=== PATIENT | male | born 1995 | race Caucasian/White ===

== ENCOUNTER 2024-01-31 13:21 | Observation (INO) ==
--- OUTSIDE RECORDS SUMMARY | 2024-01-31 13:26 | External Medical Summary | Summary of Care ---
Author Name Unknown Organization [facility] Address [address] [place] [address] Phone [phone] Care Team Providers Care Branch Mechanic Name Role Phone Carlota Jeffers DO Primary Care Provider +1- [phone] Reason for Visit * Reason Comments eRx-Medication Refill Encounter Details Date Type Department Care Team (Late st Contact Info) Description 01/21/2024 Refill Family [facility] [address] [place] [address] Carlota Jeffers DO [address] [place] [address] LINDA (generalized anxiety disorder) Allergies Active Allergy Reactions Criticality Noted Date Comments Bee Venom 10/28/2021 documented as of this encounter (statuses as of 01/27/2024) Medications Medication Sig Dispensed Refills Start Date End Date Status Omeprazole 20 MG Oral Capsule Delayed Release (PriLOSEC)Indications :Gastroesophageal reflux disease without esophagitis take 1 capsule by mouth once daily 30 Capsule 0 09/28/2023 Active Citalopram Hydrobromide 20 MG Oral Tablet (CeleXA)Indications:G AD (generalized anxiety disorder) take 1 tablet by mouth every morning 30 Tablet 0 11/20/2023 Active documented as of this encounter (statuses as of 01/27/2024) Active Problems Problem Noted Date Diagnosed Date Gastroesophageal reflux disease without esophagi tis 10/28/2021 LINDA (generalized anxiety disorder) 10/28/2021 Migraine without aura 02/01/2015 documented as of this encounter (statuses as of 01/27/2024) Resolved Problems Problem Noted Date Diagnosed Date Resolved Date Chronic daily headache 02/01/201510/28 Cervicalgia 02/01/2015 10/28/2021 Concussion 07/09/2011 10/28/2021 documented as of this encounter (statuses as of 01/27/2024) Immunizations Name Administration Dates Next Due COVID-19 mRNA, LNP-s, No Pre serve, 2-Dose Series (Moderna) 10/15/2021 DTaP Dipth/Tet/Acell Pertussis (Infanrix), Peds 12/30/2000,12/12/1996,1995,06/10,1995 Haemophilius B (HIB), unspecified 1996,1995,1995,04/01 Hepatitis B, 0-19 yrs 1995,1995,1995 MMR - Measles/Mumps/Rubella Vaccine 12/30/2000,0 05/20/1996 Meningococcal Conjugate Vacc ine (Menactra/Menveo) 09/23/2011,01/19/2008 OPV - Polio Virus Vaccine (Oral) 001,12/12/1996,1995,04/01 Seasonal Influenza, PF, 6 M & above, IM , (FluLaval or Fluzone) 08/03/2019 TDAP (age 10 and older)(Boostrix) 01/19/2008 Varicella Vaccine (Chicken Pox) 01/19/2008,12/12 documented as of this encounter Social History Tobacco Use Types Packs/Day Years Used Date Smoking Tobacco: Never Smokeless Tobacco: Never Alcohol Use Standard Drinks/Week Comments Not Currently 0 (1 standard drink = 0.6 oz pur e alcohol) Sex and Gender Information Value Date Recorded Sex Assigned at Not on file Gender Identity Not on file Sexual Orientation Not on file documented as of this encounter Miscellaneous Notes * Telephone Encounter - Xiomy Gerard OSA - 01/27/2024 10:31 AM EDT No answer, vm full. * Telephone Encounter - Xiomy Gerard OSA - 01/25/2024 12:23 PM EDT Called pt. No answer. Voicemail is full. * Telephone Encounter - Carlota Jeffers DO - 01/25/2024 8:55 AM EDT Please call patient and schedule appointment before any additional medications will be refilled * Telephone Encounter - Carlota Jeffers DO - 01/25/2024 8:55 AM EDTRefused Prescriptions: Disp Refills Citalopram Hydrobromide 20 MG Oral Tablet *30 Tab*0 Sig: take 1 tablet by mouth every morning Refused By: CARLOTA JEFFERS Reason for Refusal: Appt. Required, please call patient * Telephone Encounter - Wilmar Snell [facility] - 01/22/2024 4:21 PM EDT Pending Prescriptions: Disp Refills Citalopram Hydrobromide 20 MG Oral Tablet *30 Tab*0 Sig: take 1 tablet by mouth every morning * Telephone Encounter - Wilmar Snell [facility] - 01/22/2024 4:20 PM EDT Unable to authorize medication refills for pended medication(s) at this time. Part of the protocol criteria used for refill authorization was not satisfied. Patient needs OV and there have been multiple attempts to contact. Please approve if appropriate. Did you pend patient's preferred pharmacy and medication before forwarding?yes Pharmacy: [facility] #[id number] [facility] Pending Prescriptions: Disp Refills Citalopram Hydrobromide 20 MG Oral Tablet*30 Tab*0 Sig: take 1 tablet by mouth every morning Last Visit: 10/28/2021 (in office), Visit date not found (telemedicine) Next Visit: Visit date not found If no future appointments scheduled, and last appointment is greater than a year ago, please schedule patient for a follow-up appointment Last date the medication was ordered: 11/20/23 Is this request for a controlled substance?No Urine Drug Screen:No results found for this or any previous visit. Patient Phone Numbers Labs: No results found for: "CREAT", "POTASSIUM", "TSH", "LDLCALC", "LDLDIRECT", "LDLCHOL", "ALT", "HGBA1C" documented in this encounter Plan of Treatment Health Maintenance Due Date Last Done Comments Depression Screening 2007 HIV Screening 2010 Hepatitis C Screening 2013 DTaP,Tdap,and Td Vaccines (7 - Td or Tdap) 01/18/2018 01/19/2008, 12/30/2000, 12/12/1996, Additional history exists COVID-19 Vaccine (2022- season) 2023 10/15/2021 Influenza Vaccine (FLU shot) (#1) 2023 08/03/2019 Hepatitis B Completed 1995, 03/10, 1995 MENINGOCOCCAL (MENACTRA/MENVEO) Completed 09/23/2011, 01/19/2008 GARDASIL-HPV IMMUNIZATION SERIES Aged Out No longer eligible based on patient's age to complete this topic Pneumococcal Vaccine: Pediatrics (0 to 5 Years) and At-Risk Patients (6 to 64 Years) Aged Out No longer eligible based on patient's age to complete this topic documented as of this encounter Medical Devices Not on filedocumented as of this encounter Visit Diagnoses Diagnosis LINDA (generalized anxiety disorder) Generalized anxiety disorder documented in this encounter Care Teams Branch Mechanic Relationship Specialty Start Date End Date Carlota Jeffers DO [address] [facility] [place]) [place] [address] PCP - General Family Medicine 10/28/21 documented as of this encounter
--- OUTSIDE RECORDS SUMMARY | 2024-01-31 13:26 | External Medical Summary | Summary of Care ---
Author Name Unknown Organization [facility] Address [address] [place] [address] Phone [phone] Care Team Providers Care Public Health Veterinarian Name Role Phone Carlota Jeffers DO Primary Care Provider +1- [phone] Reason for Visit * Reason Comments eRx-Medication Refill Encounter Details Date Type Department Care Team (Late st Contact Info) Description 01/21/2024 Refill Family [facility] [address] [place] [address] Carlota Jeffers DO [address] [place] [address] LINDA (generalized anxiety disorder) Allergies Active Allergy Reactions Criticality Noted Date Comments Bee Venom 10/28/2021 documented as of this encounter (statuses as of 01/25/2024) Medications Medication Sig Dispensed Refills Start Date [...] as of this encounter (statuses as of 01/25/2024) Active Problems Problem Noted Date Diagnosed Date Gastroesophageal reflux disease without esophagi tis 10/28/2021 LINDA (generalized anxiety disorder) 10/28/2021 Migraine without aura 02/01/2015 documented as of this encounter (statuses as of 01/25/2024) Resolved Problems Problem Noted Date Diagnosed Date Resolved Date Chronic daily headache 02/01/201510/28 Cervicalgia 02/01/2015 10/28/2021 Concussion 07/09/2011 10/28/2021 documented as of this encounter (statuses as of 01/25/2024) Immunizations Name Administration Dates Next Due COVID-19 [...] encounter Miscellaneous Notes * Telephone Encounter - Carlota Jeffers DO [...] call patient * Telephone Encounter - Wilmar Snell, [facility] - 01/22/2024 4:21 PM EDT Pending Prescriptions: Disp Refills Citalopram Hydrobromide 20 MG Oral Tablet *30 Tab*0 Sig: take 1 tablet by mouth every morning * Telephone Encounter - Wilmar Snell [facility] - 01/22/2024 4:20 PM EDT Unable to authorize medication refills for pended medication(s) at this time. Part of the protocol criteria used for refill authorization was not satisfied. Patient needs OV and there have been multiple attempts to contact. Please approve if appropriate. Did you pend patient's preferred pharmacy and medication before forwarding?yes Pharmacy: [facility] #[id number] [facility] Pending Prescriptions: Disp Refills Citalopram Hydrobromide [...] 12/30/2000, 12/12/1996, Additional history exists COVID-19 Vaccine (2 2022- season) 2023 10/15/2021 Influenza Vaccine (FLU shot) [...] disorder documented in this encounter Care Teams Public Health Veterinarian Relationship Specialty Start Date End Date Carlota Jeffers DO [address] [facility] [place] [address] PCP - General Family Medicine 10/28/21 documented as of this encounter
--- OUTSIDE RECORDS SUMMARY | 2024-01-31 13:26 | External Medical Summary | Summary of Care ---
Author Name Unknown Organization [facility] Address [address] [place] [address] Phone [phone] Care Team Providers Care Finance Analyst Name Role Phone Carlota Jeffers DO Primary Care Provider +1- [phone] Reason for Visit * Reason Comments eRx-Medication Refill Encounter Details Date Type Department Care Team (Late st Contact Info) Description 01/21/2024 Refill Family [facility] [address] [place] [address] Carlota Jeffers DO [address] [place] [address] LINDA (generalized anxiety disorder) Allergies Active Allergy [...] patient * Telephone Encounter - Wilmar Snell, [facility] - 01/22/2024 4:21 PM EDT Pending Prescriptions: Disp Refills Citalopram Hydrobromide 20 MG Oral Tablet *30 Tab*0 Sig: take 1 tablet by mouth every morning * Telephone Encounter - Wilmar Snell [facility] - 01/22/2024 4:20 PM EDT Unable to authorize medication refills for pended medication(s) at this time. Part of the protocol criteria used for refill authorization was not satisfied. Patient needs OV and there have been multiple attempts to contact. Please approve if appropriate. Did you pend patient's preferred pharmacy and medication before forwarding?yes Pharmacy: [facility] #[id number] [facility] Pending Prescriptions: Disp Refills Citalopram Hydrobromide 20 [...] disorder documented in this encounter Care Teams Finance Analyst Relationship Specialty Start Date End Date Carlota Jeffers DO [address] [facility] [place] [address] PCP - General Family Medicine 10/28/21 documented as of this encounter
--- OUTSIDE RECORDS SUMMARY | 2024-01-31 13:26 | External Medical Summary | Summary of Care ---
Author Name Unknown Organization [facility] Address [address] [place] [address] Phone [phone] Care Team Providers Care Slunk Skinner Name Role Phone Carlota Jeffers DO Primary Care Provider +1- [phone] Reason for Visit * Reason Comments eRx-Medication Refill Encounter Details Date Type Department Care Team (Late st Contact Info) Description 01/21/2024 Refill Family [facility] [address] [place] [address] Carlota Jeffers DO [address] [place] [address] LINDA (generalized anxiety disorder) Allergies Active Allergy [...] patient * Telephone Encounter - Wilmar Snell [facility] - 01/22/2024 4:21 PM EDT Pending Prescriptions: Disp Refills Citalopram Hydrobromide 20 MG Oral Tablet *30 Tab*0 Sig: take 1 tablet by mouth every morning * Telephone Encounter - Wilmar Snell [facility] - 01/22/2024 4:20 PM EDT Unable to authorize medication refills for pended medication(s) at this time. Part of the protocol criteria used for refill authorization was not satisfied. Patient needs OV and there have been multiple attempts to contact. Please approve if appropriate. Did you pend patient's preferred pharmacy and medication before forwarding?yes Pharmacy: [facility] #[id number] [facility] Pending Prescriptions: Disp Refills Citalopram Hydrobromide [...] 12/30/2000, 12/12/1996, Additional history exists COVID-19 Vaccine ( season) 2023 10/15/2021 Influenza Vaccine (FLU shot) [...] disorder documented in this encounter Care Teams Slunk Skinner Relationship Specialty Start Date End Date Carlota Jeffers DO [address] [facility] [place] [address] PCP - General Family Medicine 10/28/21 documented as of this encounter
--- OUTSIDE RECORDS SUMMARY | 2024-01-31 13:26 | External Medical Summary | Summary of Care ---
Author Name Unknown Organization [facility] Address [address] [place] [address] Phone [phone] Care Team Providers Care Enterprise Account Executive Name Role Phone Carlota Jeffers DO Primary Care Provider +1- [phone] Reason for Visit * Reason Comments eRx-Medication Refill Encounter Details Date Type Department Care Team (Late st Contact Info) Description 01/21/2024 Refill Family [facility] [address] [place] [address] Carlota Jeffers DO [address] [place] [address] Gastroesophageal reflux disease without esophagitis Allergies Active Allergy Reactions Criticality Noted Date [...] 01/25/2024 8:55 AM EDTRefused Prescriptions: Disp Refills Omeprazole 20 MG Oral Capsule Delayed Rele*30 Cap*0 Sig: take 1 capsule by mouth once daily Refused By: CARLOTA JEFFERS Reason for Refusal: Appt. Required, please call patient * Telephone Encounter - Wilmar Snell, [facility] - 01/22/2024 4:25 PM EDT Pending Prescriptions: Disp Refills Omeprazole 20 MG Oral Capsule Delayed Rele*30 Cap*0 Sig: take 1 capsule by mouth once daily * Telephone Encounter - Wilmar Snell [facility] - 01/22/2024 4:24 PM EDT Unable to authorize medication refills for pended medication(s) at this time. Part of the protocol criteria used for refill authorization was not satisfied. Patient needs OV and there have been multiple attempts to contact. Please approve if appropriate. Did you pend patient's preferred pharmacy and medication before forwarding?yes Pharmacy: [facility] #[id number] [address] [facility] Pending Prescriptions: Disp Refills Omeprazole 20 MG Oral Capsule Delayed Rel*30 Cap*0 Sig: take 1 capsule by mouth once daily Last Visit: 10/28/2021 (in office), Visit date not found (telemedicine) Next Visit: Visit date not found If no future appointments scheduled, and last appointment is greater than a year ago, please schedule patient for a follow-up appointment Last date the medication was ordered: 09/28/2023 Is this request for a controlled substance?No [...] as of this encounter Visit Diagnoses Diagnosis Gastroesophageal reflux disease without esophagitis Esophageal reflux documented in this encounter Care Teams Enterprise Account Executive Relationship Specialty Start Date End Date Carlota Jeffers DO [address] [facility] [place] [address] PCP - General Family Medicine 10/28/21 documented as of this encounter
--- OUTSIDE RECORDS SUMMARY | 2024-01-31 13:27 | External Medical Summary | Summary of Care ---
Author Name Unknown Organization [facility] Address [address] [place] [address] Phone [phone] Care Team Providers Care Supervisor Reclamation Name Role Phone Carlota Jeffers DO Primary Care Provider +1- [phone] Reason for Visit * Reason Comments eRx-Medication Refill Encounter Details Date Type Department Care Team ([facility] st Contact Info) Description 12/28/2023 Refill Family Practice [facility] [address] [place] [address] Nicho Coombs MD [address] [place] [id number] LINDA (generalized anxiety disorder) Allergies Active Allergy Reactions Criticality Noted Date Comments Bee Venom 10/28/2021 documented as of this encounter (statuses as of 12/31/2023) Medications Medication Sig Dispensed Refills Start Date [...] as of this encounter (statuses as of 12/31/2023) Active Problems Problem Noted Date Diagnosed Date Gastroesophageal reflux disease without esophagi tis 10/28/2021 LINDA (generalized anxiety disorder) 10/28/2021 Migraine without aura 02/01/2015 documented as of this encounter (statuses as of 12/31/2023) Resolved Problems Problem Noted Date Diagnosed Date Resolved Date Chronic daily headache 02/01/201510/28 Cervicalgia 02/01/2015 10/28/2021 Concussion 07/09/2011 10/28/2021 documented as of this encounter (statuses as of 12/31/2023) Immunizations Name Administration Dates Next Due COVID-19 [...] Telephone Encounter - Xiomy Gerard OSA - 12/31/2023 10:16 AM EST Called pt. No aswer, no VM. * Telephone Encounter - Xiomy Gerard OSA - 12/30/2023 12:32 PM EST Called pt. No answer, no VM. * Telephone Encounter - Carlota Jeffers DO - 12/29/2023 7:51 AM EST Please call patient and schedule appointment before any additional medications will be refilled Patient has not been seen since 2020 * Telephone Encounter - Carlota Jeffers DO - 12/29/2023 7:51 AM ESTRefused Prescriptions: Disp Refills Citalopram Hydrobromide 20 MG Oral Tablet *30 Tab*0 Sig: take 1 tablet by mouth every morning Refused By: CARLOTA JEFFERS Reason for Refusal: Appt. Required, please call patient * Telephone Encounter - Glenn Newton RPh - 12/29/2023 7:38 AM ESTPending Prescriptions: Disp Refills Citalopram Hydrobromide 20 MG Oral Tablet *30 Tab*0 Sig: take 1 tablet by mouth every morning * Telephone Encounter - Glenn Newton RPh - 12/29/2023 7:37 AM EST Unable to authorize medication refills for pended medication(s) at this time. Part of the protocol criteria used for refill authorization was not satisfied. Patient needs updated OV per refill protocol. Multiple previous contact attempts Please approve if appropriate. Thanks, Omari Newton, PharmD Clinical Pharmacist [facility]ized [facility] Services ([facility]) (Formerly Telepharmacy) [phone] 12/29/2023 7:38 AM documented in this encounter Plan of Treatment [...] disorder documented in this encounter Care Teams Supervisor Reclamation Relationship Specialty Start Date End Date Carlota Jeffers DO [address] [facility] [place] [address] PCP - General Family Medicine 10/28/21 documented as of this encounter
--- OUTSIDE RECORDS SUMMARY | 2024-01-31 13:27 | External Medical Summary | Summary of Care ---
Author Name Unknown Organization [facility] Address [address] [place] [address] Phone [phone] Care Team Providers Care Oil Separator Name Role Phone Carlota Jeffers DO Primary Care Provider +1- [phone] Reason for Visit * Reason Comments eRx-Medication Refill Encounter Details Date Type Department Care Team (Late st Contact Info) Description 11/04/[address] [facility] [place] [place] [address] [facility] [place] [place] [address] Carlota Jeffers DO [address] [place] [address] Gastroesophageal reflux disease without esophagitis Allergies Active Allergy Reactions Criticality Noted Date Comments Bee Venom 10/28/2021 documented as of this encounter (statuses as of 11/06/2023) Medications Medication Sig Dispensed Refills Start Date End Date Status Citalopram Hydrobromide 20 MG Oral Tablet (CeleXA)Indications:G AD (generalized anxiety disorder) take 1 tablet by mouth every morning 90 Tablet 0 07/27/2023 Active Omeprazole 20 MG Oral Capsule Delayed Release (PriLOSEC)Indications :Gastroesophageal reflux disease without esophagitis take 1 capsule by mouth once daily 30 Capsule 0 09/28/2023 Active documented as of this encounter (statuses as of 11/06/2023) Active Problems Problem Noted Date Diagnosed Date Gastroesophageal reflux disease without esophagi tis 10/28/2021 LINDA (generalized anxiety disorder) 10/28/2021 Migraine without aura 02/01/2015 documented as of this encounter (statuses as of 11/06/2023) Resolved Problems Problem Noted Date Diagnosed Date Resolved Date Chronic daily headache 02/01/201510/28 Cervicalgia 02/01/2015 10/28/2021 Concussion 07/09/2011 10/28/2021 documented as of this encounter (statuses as of 11/06/2023) Immunizations Name Administration Dates Next Due COVID-19 mRNA, LNP-s, No Pre serve, 2-Dose Series (Moderna) 10/15/2021 DTaP Dipth/Tet/Acell Pertussis (Infanrix), Peds 12/30/2000,12/12/1996,1995,06/10,1995 Haemophilius B (HIB), unspecified 1996,1995,1995,04/01 Hepatitis B, 0-19 yrs 1995,1995,07/1995 MMR - Measles/Mumps/Rubella Vaccine 12/30/2000,0 05/20/1996 Meningococcal [...] Telephone Encounter - Carlota Jeffers DO - 11/05/2023 4:22 PM EST Please call patient and schedule appointment before any additional medications will be refilled * Telephone Encounter - Carlota Jeffers DO - 11/05/2023 4:22 PM ESTRefused Prescriptions: Disp Refills Omeprazole 20 MG Oral Capsule Delayed Rele*30 Cap*0 Sig: take 1 capsule by mouth once daily Refused By: CARLOTA JEFFERS Reason for Refusal: Appt. Required, please call patient * Telephone Encounter - Josefina Us reservations agent - 11/05/2023 2:42 PM ESTPending Prescriptions: Disp Refills Omeprazole 20 MG Oral Capsule Delayed Rele*30 Cap*0 Sig: take 1 capsule by mouth once daily * Telephone Encounter - Josefina Us reservations agent - 11/05/2023 2:41 PM EST Received message from [facility] regarding patient needing appointment. Placed call to patient to advise. Unable to reach pt, as there was no answer and no VM available to leave message. Letter created and sent to patient. Thank you, Josefina Us [facility] Director Integrated II Centralized Clin[facility] Pharmacy Services ([facility]PS) (formerly Telepharmacy) 11/05/2023,2:41 PM * Telephone Encounter - Darleen Manzo [facility] - 11/05/2023 8:41 AM ESTPending Prescriptions: Disp Refills Omeprazole 20 MG Oral Capsule Delayed Rele*30 Cap*0 Sig: take 1 capsule by mouth once daily * Telephone Encounter - Darleen Manzo RP - 11/05/2023 8:41 AM EST 3rd Attempt Please contact patient so that an appointment can be scheduled with his PRIMARY CARE provider before this refill can be authorized. After contacting patient, please forward request to Carlota Jeffers DO. Last Visit: 10/28/2021 (in office), Visit date not found (telemedicine) Next Visit: Visit date not found Darleen Yun, PharmD Clinical Pharmacist [facility] Pharmacy Services ([facility] - Formerly Telepharmacy) [phone] 11/05/2023 8:41 AM documented in this encounter Plan of [...] reflux documented in this encounter Care Teams Oil Separator Relationship Specialty Start Date End Date Carlota Jeffers DO [address] [facility] [place]) [place] [address] PCP - General Family Medicine 10/28/21 documented as of this encounter
--- OUTSIDE RECORDS SUMMARY | 2024-01-31 13:27 | External Medical Summary | Summary of Care ---
Author Name Unknown Organization [facility] Address [address] [place] [address] Phone [phone] Care Team Providers Care Crusher Tender Name Role Phone Carlota Jeffers DO Primary Care Provider +1- [phone] Reason for Visit * Reason Comments eRx-Medication Refill Encounter Details Date Type Department Care Team ([facility] st Contact Info) Description 12/28/2023 Refill Family Practice [facility] [address] [place] [address] Nicho Coombs MD [address] [place] [id number] LINDA (generalized anxiety disorder) Allergies Active Allergy Reactions Criticality Noted Date Comments Bee Venom 10/28/2021 documented as of this encounter (statuses as of 12/30/2023) Medications Medication Sig Dispensed Refills Start Date [...] as of this encounter (statuses as of 12/30/2023) Active Problems Problem Noted Date Diagnosed Date Gastroesophageal reflux disease without esophagi tis 10/28/2021 LINDA (generalized anxiety disorder) 10/28/2021 Migraine without aura 02/01/2015 documented as of this encounter (statuses as of 12/30/2023) Resolved Problems Problem Noted Date Diagnosed Date Resolved Date Chronic daily headache 02/01/201510/28 Cervicalgia 02/01/2015 10/28/2021 Concussion 07/09/2011 10/28/2021 documented as of this encounter (statuses as of 12/30/2023) Immunizations Name Administration Dates Next Due COVID-19 [...] [facility] ([facility]) (Formerly Telepharmacy) [phone] 12/29/2023 7:38 AM documented in this encounter [...] disorder documented in this encounter Care Teams Crusher Tender Relationship Specialty Start Date End Date Carlota Jeffers DO [address] [facility] [place] [address] PCP - General Family Medicine 10/28/21 documented as of this encounter
--- OUTSIDE RECORDS SUMMARY | 2024-01-31 13:27 | External Medical Summary | Summary of Care ---
Author Name Unknown Organization [facility] Address [address] [place] [address] Phone [phone] Care Team Providers Care Rough And Truing Machine Operator Name Role Phone Carlota Jeffers DO Primary Care Provider +1- [phone] Reason for Visit * Reason Comments eRx-Medication Refill Encounter Details Date Type Department Care Team (Late st Contact Info) Description 04/15/[facility] [address] [facility] [place] [address] Carlota Jeffers DO [address] [facility] [place] [phone] Routine medical exam*; Gastroesophageal reflux disease without esophagitis; LINDA (generalized anxiety disorder); Encounter for long-term (current) use of medications Allergies Active Allergy Reactions Criticality Noted Date Comments Bee Venom 10/28/2021 documented as of this encounter (statuses as of 09/17/2023) Medications Medication Sig Dispensed Refills Start Date End Date Status Omeprazole 20 MG Oral Capsule Delayed Release (PriLOSEC)Indicati ons:Gastroesophage al reflux disease without esophagitis take 1 capsule by mouth once daily 90 Capsule 0 04/16/2023 Active Omeprazole 20 MG Oral Capsule Delayed Release (PriLOSEC)Indicati ons:Gastroesophage al reflux disease without esophagitis take 1 capsule by mouth once daily 90 Capsule 0 10/31/2022 3 Discontinued Citalopram Hydrobromide 20 MG Oral Tablet (CeleXA)Indication s:LINDA (generalized anxiety disorder) Take 1 Tablet by mouth in the morning. 90 Tablet 0 10/31/2022 3 Discontinued Citalopram Hydrobromide 20 MG Oral Tablet (CeleXA)Indication s:LINDA (generalized anxiety disorder) take 1 tablet by mouth every morning 90 Tablet 0 04/16/2023 3 Discontinued documented as of this encounter (statuses as of 09/17/2023) Active Problems Problem Noted Date Diagnosed Date Gastroesophageal reflux disease without esophagi tis 10/28/2021 LINDA (generalized anxiety disorder) 10/28/2021 Migraine without aura 02/01/2015 documented as of this encounter (statuses as of 09/17/2023) Resolved Problems Problem Noted Date Diagnosed Date Resolved Date Chronic daily headache 02/01/201510/28 Cervicalgia 02/01/2015 10/28/2021 Concussion 07/09/2011 10/28/2021 documented as of this encounter (statuses as of 09/17/2023) Immunizations Name Administration Dates Next Due COVID-19 mRNA, LNP-s, No Pre serve, 2-Dose Series (Moderna) 10/15/2021 DTaP Dipth/Tet/Acell Pertussis (Infanrix), Peds 12/30/2000,12/12/1996,1995,06/10,1995 Haemophilius B (HIB), unspecified 1996,1995,1995,04/01 Hepatitis B, 0-19 yrs 1995,1995,04/0 07/1995 MMR - Measles/Mumps/Rubella Vaccine 12/30/2000,0 05/20/1996 Meningococcal Conjugate Vacc ine (Menactra/Menveo) 09/23/2011,01/19/2008 OPV - Polio Virus Vaccine (Oral) 001,12/12/1996,1995,04/01 SEASONAL INFLUENZA, PF, 6 M & Above, IM , (FLULAVAL or FLUZONE) 08/03/2019 TDAP (age 10 and older)(Boostrix) 01/19/2008 [...] encounter Miscellaneous Notes * Telephone Encounter - Milagro Guaman PHARM Tech - 09/17/2023 5:13 PM EST Upcoming OV with PCP scheduled. Thank you, Milagro Guaman Truss Maker [facility] ([facility]) (formerly [employer]) [phone] 09/17/2023,5:14 PM * Telephone Encounter - Mckenzie Brown [facility] - 04/16/2023 2:52 PM EDT Signed Prescriptions: Disp Refills Omeprazole 20 MG Oral Capsule Delayed Rele*90 Cap*0 Sig: take 1 capsule by mouth once daily Authorizing Provider: CARLOTA JEFFERS Ordering User: MCKENZIE BROWN Citalopram Hydrobromide 20 MG Oral Tablet *90 Tab*0 Sig: take 1 tablet by mouth every morning Authorizing Provider: CARLOTA JEFFERS Ordering User: NEO BRONW * Telephone Encounter - Mckenzie Brown RP - 04/16/2023 2:51 PM EDT 2nd Attempt Please contact patient so that an appointment can be scheduled with his PRIMARY CARE provider. Refill authorized to hold patient over in the mean time. Last Visit: 10/28/2021 (in office), Visit date not found (telemedicine) Next Visit: Visit date not found Thank you, Mckenzie Brown, PharmD Clinical Pharmacist [facility] ([facility]) (formerly Telepharmacy) 04/16/23 2:51 PM [phone] documented in this encounter Plan of Treatment Upcoming Encounters Date Type Department Care Team (Late st Contact Info) Description 10/16/2023 12:00 PM EST Office Visit [facility] [address] [place] [address] Carlota Jeffers DO [address] [place] [address] Scheduled Orders Name Type Priority Associated Diagnoses Orde r Schedule VITAMIN B12 Lab Routine Routine medical exam Encounter for long-term (current) use of medications Expected: 04/30/2023 (Approximate), Expires: 04/16/2024 MAGNESIUM Lab Routine Routine medical exam Encounter for long-term (current) use of medications Expected: 04/30/2023 (Approximate), Expires: 04/16/2024 Health Maintenance Due Date Last Done Comments [...] as of this encounter Visit Diagnoses Diagnosis Routine medical exam- Primary Routine general medical examination at a health care facility Gastroesophageal reflux disease without esophagitis Esophageal reflux LINDA (generalized anxiety disorder) Generalized anxiety disorder Encounter for long-term (current) use of medications Encounter for long-term (current) use of other medications documented in this encounter Care Teams Rough And Truing Machine Operator Relationship Specialty Start Date End Date Carlota Jeffers DO [address] [facility] [place] [address] PCP - General Family Medicine 10/28/21 documented as of this encounter
--- OUTSIDE RECORDS SUMMARY | 2024-01-31 13:27 | External Medical Summary | Summary of Care ---
Author Name Unknown Organization [facility] Address [address] [place] [address] Phone [phone] Care Team Providers Care Automobile Club Membership Sales Agent Name Role Phone Carlota Jeffers DO Primary Care Provider +1- [phone] Reason for Visit * Reason Comments eRx-Medication Refill Encounter Details Date Type Department Care Team ([facility] st Contact Info) Description 12/28/2023 Refill Family Practice [facility] [address] [place] [address] Nicho Coombs MD [address] [place] [phone] LINDA (generalized anxiety disorder) Allergies Active Allergy Reactions Criticality Noted Date Comments Bee Venom 10/28/2021 documented as of this encounter (statuses as of 12/29/2023) Medications Medication Sig Dispensed Refills Start Date [...] as of this encounter (statuses as of 12/29/2023) Active Problems Problem Noted Date Diagnosed Date Gastroesophageal reflux disease without esophagi tis 10/28/2021 LINDA (generalized anxiety disorder) 10/28/2021 Migraine without aura 02/01/2015 documented as of this encounter (statuses as of 12/29/2023) Resolved Problems Problem Noted Date Diagnosed Date Resolved Date Chronic daily headache 02/01/201510/28 Cervicalgia 02/01/2015 10/28/2021 Concussion 07/09/2011 10/28/2021 documented as of this encounter (statuses as of 12/29/2023) Immunizations Name Administration Dates Next Due COVID-19 [...] patient * Telephone Encounter - Glenn Newton RP - 12/29/2023 7:38 AM ESTPending Prescriptions: Disp [...] Pharmacist [facility] ([facility]) (Formerly [facility]) [phone] 12/29/2023 7:38 AM documented in this encounter [...] disorder documented in this encounter Care Teams Automobile Club Membership Sales Agent Relationship Specialty Start Date End Date Carlota Jeffers DO [address] [facility] [place] [address] PCP - General Family Medicine 10/28/21 documented as of this encounter
--- OUTSIDE RECORDS SUMMARY | 2024-01-31 13:27 | External Medical Summary | Summary of Care ---
Author Name Unknown Organization [facility] Address [address] [facility] [place] [address] Phone [phone] Care Team Providers Care Commercial Lines Account Manager Name Role Phone Carlota Jeffers DO Primary Care Provider +1- [phone] Reason for Visit * Reason Comments eRx-Medication Refill Encounter Details Date Type Department Care Team (Late st Contact Info) Description 09/26/2023 [facility] [address] [facility] [place] [address] Carlota Jeffers DO [address] [place] [address] Gastroesophageal reflux disease without esophagitis Allergies Active Allergy Reactions Criticality Noted Date Comments Bee Venom 10/28/2021 documented as of this encounter (statuses as of 09/28/2023) Medications Medication Sig Dispensed Refills Start Date End Date Status Citalopram Hydrobromide 20 MG Oral Tablet (CeleXA)Indication s:LINDA (generalized anxiety disorder) take 1 tablet by mouth every morning 90 Tablet 0 07/27/2023 Active Omeprazole 20 MG Oral Capsule Delayed Release (PriLOSEC)Indicati ons:Gastroesophage al reflux disease without esophagitis take 1 capsule by mouth once daily 30 Capsule 0 09/28/2023 Active Omeprazole 20 MG Oral Capsule Delayed Release (PriLOSEC)Indicati ons:Gastroesophage al reflux disease without esophagitis take 1 capsule by mouth once daily 90 Capsule 0 04/16/2023 09/28/2023 Discontinued (Refill) documented as of this encounter (statuses as of 09/28/2023) Active Problems Problem Noted Date Diagnosed Date Gastroesophageal reflux disease without esophagi tis 10/28/2021 LINDA (generalized anxiety disorder) 10/28/2021 Migraine without aura 02/01/2015 documented as of this encounter (statuses as of 09/28/2023) Resolved Problems Problem Noted Date Diagnosed Date Resolved Date Chronic daily headache 02/01/201510/28 Cervicalgia 02/01/2015 10/28/2021 Concussion 07/09/2011 10/28/2021 documented as of this encounter (statuses as of 09/28/2023) Immunizations Name Administration Dates Next Due COVID-19 mRNA, LNP-s, No Pre serve, 2-Dose Series (Moderna) 10/15/2021 DTaP Dipth/Tet/Acell Pertussis (Infanrix), Peds 12/30/2000,12/12/1996,1995,06/10,1995 Haemophilius B (HIB), unspecified 1996,1995,1995,04/01 Hepatitis B, 0-19 yrs 1995,1995,0407/1995 MMR - Measles/Mumps/Rubella Vaccine 12/30/2000,0 05/20/1996 Meningococcal [...] Telephone Encounter - Carlota Jeffers DO - 09/28/2023 7:59 AM ESTSigned Prescriptions: Disp Refills Omeprazole 20 MG Oral Capsule Delayed Rele*30 Cap*0 Sig: take 1 capsule by mouth once daily Authorizing Provider: CARLOTA JEFFERS * Telephone Encounter - Ashlyn Hare [facility] - 09/28/2023 7:05 AM ESTPending Prescriptions: Disp Refills Omeprazole 20 MG Oral Capsule Delayed Rele*30 Cap*0 Sig: take 1 capsule by mouth once daily * Telephone Encounter - Ashlyn Hare RPh - 09/28/2023 7:04 AM EST Patient over due for OV No showed last appointment Currently scheduled for 10/16/23 Please approve if appropriate Thank You, Ashlyn Hare [facility] Clinical Pharmacist Centralized Clinical Pharmacy Services ([facility]PS) (formerly Telepharmacy) [phone] 09/28/2023, 7:05 AM documented in this encounter Plan of Treatment Upcoming Encounters Date Type Department Care Team (Late st Contact Info) Description 10/16/2023 12:00 PM EST Office Visit [facility] [address] [place] [address] Carlota Jeffers DO [address] [place] [address] Health Maintenance Due Date Last Done Comments [...] reflux documented in this encounter Care Teams Commercial Lines Account Manager Relationship Specialty Start Date End Date Carlota Jeffers DO [address] [place] [address] PCP - General Family Medicine 10/28/21 documented as of this encounter
--- OUTSIDE RECORDS SUMMARY | 2024-01-31 13:27 | External Medical Summary | Summary of Care ---
Author Name Unknown Organization [facility] Address [address] [place] [address] Phone [phone] Care Team Providers Care Cat Scan Technologist Name Role Phone Carlota Jeffers DO Primary Care Provider +1- [phone] Reason for Visit * Reason Comments eRx-Medication Refill Encounter Details Date Type Department Care Team (Late st Contact Info) Description 11/19/2023 Refill Family Practice [facility] [address] [place] [address] Carlota Jeffers DO [address] [place] [address] LINDA (generalized anxiety disorder) Allergies Active Allergy Reactions Criticality Noted Date Comments Bee Venom 10/28/2021 documented as of this encounter (statuses as of 11/24/2023) Medications Medication Sig Dispensed Refills Start Date End Date Status Omeprazole 20 MG Oral Capsule Delayed Release (PriLOSEC)Indicati ons:Gastroesophage al reflux disease without esophagitis take 1 capsule by mouth once daily 30 Capsule 0 09/28/2023 Active Citalopram Hydrobromide 20 MG Oral Tablet (CeleXA)Indication s:LINDA (generalized anxiety disorder) take 1 tablet by mouth every morning 30 Tablet 0 11/20/2023 Active Citalopram Hydrobromide 20 MG Oral Tablet (CeleXA)Indication s:LINDA (generalized anxiety disorder) take 1 tablet by mouth every morning 90 Tablet 0 07/27/2023 Discontinued documented as of this encounter (statuses as of 11/24/2023) Active Problems Problem Noted Date Diagnosed Date Gastroesophageal reflux disease without esophagi tis 10/28/2021 LINDA (generalized anxiety disorder) 10/28/2021 Migraine without aura 02/01/2015 documented as of this encounter (statuses as of 11/24/2023) Resolved Problems Problem Noted Date Diagnosed Date Resolved Date Chronic daily headache 02/01/201510/28 Cervicalgia 02/01/2015 10/28/2021 Concussion 07/09/2011 10/28/2021 documented as of this encounter (statuses as of 11/24/2023) Immunizations Name Administration Dates Next Due COVID-19 [...] Miscellaneous Notes * Telephone Encounter - Xiomy Gerard, CIERRA - 11/24/2023 8:53 AM EST Called pt to offer appt. No answer, VM full. * Telephone Encounter - Nicho Salas MD - 11/20/2023 12:47 PM ESTSigned Prescriptions: Disp Refills Citalopram Hydrobromide 20 MG Oral Tablet *30 Tab*0 Sig: take 1 tablet by mouth every morning Authorizing Provider: NICHO SALAS * Telephone Encounter - Nicho Salas MD - 11/20/2023 12:47 PM EST Patient not seen since 2020 Schedule to be seen Script only done for 30 pills Please call in the prescription to patients pharmacy and close encounter. Signed Prescriptions: Disp Refills Citalopram Hydrobromide 20 MG Oral Tablet *30 Tab*0 Sig: take 1 tablet by mouth every morning Authorizing Provider: NICHO SALAS * Telephone Encounter - Román Yanez, electric powerline examiner - 11/20/2023 11:45 AM ESTPending Prescriptions: Disp Refills Citalopram Hydrobromide 20 MG Oral Tablet *90 Tab*0 Sig: take 1 tablet by mouth every morning * Telephone Encounter - Román Yanez electric powerline examiner - 11/20/2023 11:44 AM EST Received message from [facility] regarding patient needing appointment. Placed call to patient to advise. Unable to reach pt, as there was no answer and no VM available to leave message. Letter created and sent to patient. Thank you, Román Yanez Reconditioner [facility] [address] [facility] 11/20/2023, 11:44 AM * Telephone Encounter - Goldy Escobedo [facility] - 11/20/2023 10:27 AM ESTPending Prescriptions: Disp Refills Citalopram Hydrobromide 20 MG Oral Tablet *90 Tab*0 Sig: take 1 tablet by mouth every morning * Telephone Encounter - Goldy Escobedo [facility] - 11/20/2023 10:27 AM EST Multiple attempts Please contact patient so that an appointment can be scheduled with his PRIMARY CARE provider before this refill can be authorized. After contacting patient, please forward request to Carlota Jeffers DO. Last Visit: 10/28/2021 (in office), Visit date not found (telemedicine) Next Visit: Visit date not found Thank You, Goldy Desai [facility] Clinical Pharmacist Centralized Clinical Pharmacy Services (CCPS) (formerly Telepharmacy) 11/20/2023, 10:27 AM * Telephone Encounter - Goldy Escobedo [facility] - 11/20/2023 10:26 AM EST Pending Prescriptions: Disp Refills Citalopram Hydrobromide 20 MG Oral Tablet*90 Tab*0 Sig: take 1 tablet by mouth every morning Last Visit: 10/28/2021 (in office), Visit date not found (telemedicine) Next Visit: Visit date not found If no future appointments scheduled, and last appointment is greater than a year ago, please schedule patient for a follow-up appointment Last date the medication was ordered: 07/27/23 Pharmacy: [facility] #[id number] [address] [facility] Is this request for a controlled substance? No Urine Drug Screen:No results found for this [...] disorder documented in this encounter Care Teams Cat Scan Technologist Relationship Specialty Start Date End Date Carlota Jeffers DO [address] [facility] [place] [address] PCP - General Family Medicine 10/28/21 documented as of this encounter
--- OUTSIDE RECORDS SUMMARY | 2024-01-31 13:27 | External Medical Summary | Summary of Care ---
Author Name Unknown Organization [facility] Address [address] [place] [address] Phone [phone] Care Team Providers Care Toy Consultant Name Role Phone Carlota Jeffers DO Primary Care Provider +1- [phone] Reason for Visit * Reason Comments eRx-Medication Refill Encounter Details Date Type Department Care Team (Late st Contact Info) Description 11/04/2023 Refill Family Practice [facility] [place] [address] [place] [address] Carlota Jeffers DO [address] [place] [address] Gastroesophageal reflux disease without esophagitis Allergies Active [...] patient * Telephone Encounter - Josefina Us tie puller - 11/05/2023 2:42 PM ESTPending Prescriptions: Disp Refills Omeprazole 20 MG Oral Capsule Delayed Rele*30 Cap*0 Sig: take 1 capsule by mouth once daily * Telephone Encounter - Josefina Us tie puller - 11/05/2023 2:41 PM EST Received message from [facility] regarding patient needing appointment. Placed call to patient to advise. Unable to reach pt, as there was no answer and no VM available to leave message. Letter created and sent to patient. Thank you, Josefina Us [facility] Hole Puncher Strap II [facility] ([facility]) (formerly Telepharmacy) 11/05/2023,2:41 PM * Telephone Encounter - Darleen Manzo [facility] - 11/05/2023 8:41 AM ESTPending Prescriptions: Disp [...] Clinical Pharmacy Services ([facility]PS - Formerly Telepharmacy) [phone] 11/05/2023 8:41 AM documented in this encounter [...] reflux documented in this encounter Care Teams Toy Consultant Relationship Specialty Start Date End Date Carlota Jeffers DO [address] [facility] [place] [address] PCP - General Family Medicine 10/28/21 documented as of this encounter
--- OUTSIDE RECORDS SUMMARY | 2024-01-31 13:27 | External Medical Summary | Summary of Care ---
Author Name Unknown Organization [facility] Address [address] [place] [address] Phone [phone] Care Team Providers Care Supervisor Brine Name Role Phone Carlota Jeffers DO Primary Care Provider +1- [phone] Reason for Visit * Reason Comments eRx-Medication Refill Encounter Details Date Type Department Care Team (Late st Contact Info) Description 11/04/[address] [facility] [address] [place] [address] Carlota Jeffers DO [address] [place] [address] Gastroesophageal reflux disease without esophagitis Allergies Active Allergy Reactions Criticality Noted Date Comments Bee Venom 10/28/2021 documented as of this encounter (statuses as of 11/12/2023) Medications Medication Sig Dispensed Refills Start Date [...] as of this encounter (statuses as of 11/12/2023) Active Problems Problem Noted Date Diagnosed Date Gastroesophageal reflux disease without esophagi tis 10/28/2021 LINDA (generalized anxiety disorder) 10/28/2021 Migraine without aura 02/01/2015 documented as of this encounter (statuses as of 11/12/2023) Resolved Problems Problem Noted Date Diagnosed Date Resolved Date Chronic daily headache 02/01/201510/28 Cervicalgia 02/01/2015 10/28/2021 Concussion 07/09/2011 10/28/2021 documented as of this encounter (statuses as of 11/12/2023) Immunizations Name Administration Dates Next Due COVID-19 [...] Telephone Encounter - Xiomy Gerard OSA - 11/12/2023 10:44 AM EST Called to offer opening. No answer. Mailbox is full. * Telephone Encounter - Michelle Schmitz OSA - 11/06/2023 12:16 PM EST Called to schedule appt. No answer and could not leave message due to mailbox being full. * Telephone Encounter - Carlota Jeffers [...] patient * Telephone Encounter - Josefina Us promotions executive - 11/05/2023 2:42 PM ESTPending Prescriptions: Disp Refills Omeprazole 20 MG Oral Capsule Delayed Rele*30 Cap*0 Sig: take 1 capsule by mouth once daily * Telephone Encounter - Josefina Us PHARM Tech - 11/05/2023 2:41 PM EST Received message from [facility] regarding patient needing appointment. Placed call to patient to advise. Unable to reach pt, as there was no answer and no VM available to leave message. Letter created and sent to patient. Thank you, Josefina Us [facility] Low Voltage Electrician II [facility] ([facility]) (formerly Telepharm[facility]) 11/05/2023,2:41 PM * Telephone Encounter - Darleen Manzo [facility] - 11/05/2023 8:41 AM ESTPending Prescriptions: Disp Refills Omeprazole 20 MG Oral Capsule Delayed Rele*30 Cap*0 Sig: take 1 capsule by mouth once daily * Telephone Encounter - Darleen Manzo [facility] - 11/05/2023 8:41 AM EST 3rd Attempt Please contact patient so that an appointment can be scheduled with his PRIMARY CARE provider before this refill can be authorized. After contacting patient, please forward request to Carlota Jeffers DO. Last Visit: 10/28/2021 (in office), Visit date not found (telemedicine) Next Visit: Visit date not found Thanks, Darleen Manzo, [place] Clinical Pharmacist [facility] ([facility] - Formerly Telepharmacy) [phone] 11/05/2023 8:41 AM documented in this encounter [...] reflux documented in this encounter Care Teams Supervisor Brine Relationship Specialty Start Date End Date Carlota Jeffers DO [address] [facility] [place] [address] PCP - General Family Medicine 10/28/21 documented as of this encounter
--- OUTSIDE RECORDS SUMMARY | 2024-01-31 13:27 | External Medical Summary | Summary of Care ---
Author Name Unknown Organization [facility] Address [address] [place] [address] Phone [phone] Care Team Providers Care Sand Filler Name Role Phone Carlota Jeffers DO Primary Care Provider +1- [phone] Reason for Visit * Reason Comments eRx-Medication Refill Encounter Details Date Type Department Care Team ([facility] st Contact Info) Description 12/28/2023 Refill Family Practice [facility] [address] [place] [address] Nicho Coombs MD [address] [place] [id number] LINDA (generalized anxiety disorder) Allergies Active Allergy Reactions Criticality Noted Date Comments Bee Venom 10/28/2021 documented as of this encounter (statuses as of 01/01/2024) Medications Medication Sig Dispensed Refills Start Date [...] as of this encounter (statuses as of 01/01/2024) Active Problems Problem Noted Date Diagnosed Date Gastroesophageal reflux disease without esophagi tis 10/28/2021 LINDA (generalized anxiety disorder) 10/28/2021 Migraine without aura 02/01/2015 documented as of this encounter (statuses as of 01/01/2024) Resolved Problems Problem Noted Date Diagnosed Date Resolved Date Chronic daily headache 02/01/201510/28 Cervicalgia 02/01/2015 10/28/2021 Concussion 07/09/2011 10/28/2021 documented as of this encounter (statuses as of 01/01/2024) Immunizations Name Administration Dates Next Due COVID-19 [...] Telephone Encounter - Xiomy Gerard OSA - 01/01/2024 8:54 AM EST Called pt. No answer, no VM. * Telephone Encounter - Xiomy [...] seen since 2020 * Telephone Encounter - Cralota Jeffers DO - 12/29/2023 7:51 AM ESTRefused Prescriptions: Disp Refills Citalopram Hydrobromide 20 MG Oral Tablet *30 Tab*0 Sig: take 1 tablet by mouth every morning Refused By: CARLOTA JEFFERS Reason for Refusal: Appt. Required, please call patient * Telephone Encounter - Glenn Newton [facility] - 12/29/2023 7:38 AM ESTPending Prescriptions: Disp [...] [facility] ([facility]) (Formerly Telepharmacy) [phone] 12/29/2023 7:38 AM documented in this encounter [...] disorder documented in this encounter Care Teams Sand Filler Relationship Specialty Start Date End Date [facility] Jeffers [facility] [address] [facility] [address] PCP - General Family Medicine 10/28/21 documented as of this encounter
--- OUTSIDE RECORDS SUMMARY | 2024-01-31 13:27 | External Medical Summary | Summary of Care ---
Author Name Unknown Organization [facility] Address [address] [place] [address] Phone [phone] Care Team Providers Care Billiard Table Assembler Name Role Phone Carlota Jeffers DO Primary Care Provider +1- [phone] Reason for Visit * Reason Comments eRx-Medication Refill Encounter Details Date Type Department Care Team (Late st Contact Info) Description 11/04/2023 Refill Family Practice [facility] [place] [address] [facility] [place] [address] Carlota Jeffers DO [address] [place] [address] Gastroesophageal reflux disease without esophagitis Allergies Active Allergy Reactions Criticality Noted Date Comments Bee Venom 10/28/2021 documented as of this encounter (statuses as of 11/05/2023) Medications Medication Sig Dispensed Refills Start Date [...] as of this encounter (statuses as of 11/05/2023) Active Problems Problem Noted Date Diagnosed Date Gastroesophageal reflux disease without esophagi tis 10/28/2021 LINDA (generalized anxiety disorder) 10/28/2021 Migraine without aura 02/01/2015 documented as of this encounter (statuses as of 11/05/2023) Resolved Problems Problem Noted Date Diagnosed Date Resolved Date Chronic daily headache 02/01/201510/28 Cervicalgia 02/01/2015 10/28/2021 Concussion 07/09/2011 10/28/2021 documented as of this encounter (statuses as of 11/05/2023) Immunizations Name Administration Dates Next Due COVID-19 [...] patient * Telephone Encounter - Josefina Us debt recovery officer - 11/05/2023 2:42 PM ESTPending Prescriptions: Disp Refills Omeprazole 20 MG Oral Capsule Delayed Rele*30 Cap*0 Sig: take 1 capsule by mouth once daily * Telephone Encounter - Josefina Us debt recovery officer - 11/05/2023 2:41 PM EST Received message from [facility] regarding patient needing appointment. Placed call to patient to advise. Unable to reach pt, as there was no answer and no VM available to leave message. Letter created and sent to patient. Thank you, Josefina Us [facility] Customer Experience Analyst II [facility] ([facility]) (formerly Telepharmacy) 11/05/2023,2:41 PM * Telephone Encounter - Darleen Manzo [facility] - 11/05/2023 8:41 AM ESTPending Prescriptions: Disp [...] Clinical Pharmacy Services ([facility] - Formerly Telepharmacy) [phone] 11/05/2023 8:41 AM documented in this encounter [...] reflux documented in this encounter Care Teams Billiard Table Assembler Relationship Specialty Start Date End Date Carlota Jeffers DO [address] [facility] [place] [address] PCP - General Family Medicine 10/28/21 documented as of this encounter
--- OUTSIDE RECORDS SUMMARY | 2024-01-31 13:27 | External Medical Summary | Summary of Care ---
Author Name Unknown Organization [facility] Address [address] [place] [address] Phone [phone] Care Team Providers Care Environmental Monitoring Specialist Name Role Phone Carlota Jeffers DO Primary Care Provider +1- [phone] Reason for Visit * Reason Comments eRx-Medication Refill Encounter Details Date Type Department Care Team (Late st Contact Info) Description 11/04/2023 Refill Family Practice [facility] [place] [address] [place] [address] Carlota Jeffers DO [address] [place] [address] Gastroesophageal reflux disease without esophagitis Allergies Active Allergy Reactions Criticality Noted Date Comments Bee Venom 10/28/2021 documented as of this encounter (statuses as of 11/13/2023) Medications Medication Sig Dispensed Refills Start Date [...] as of this encounter (statuses as of 11/13/2023) Active Problems Problem Noted Date Diagnosed Date Gastroesophageal reflux disease without esophagi tis 10/28/2021 LINDA (generalized anxiety disorder) 10/28/2021 Migraine without aura 02/01/2015 documented as of this encounter (statuses as of 11/13/2023) Resolved Problems Problem Noted Date Diagnosed Date Resolved Date Chronic daily headache 02/01/201510/28 Cervicalgia 02/01/2015 10/28/2021 Concussion 07/09/2011 10/28/2021 documented as of this encounter (statuses as of 11/13/2023) Immunizations Name Administration Dates Next Due COVID-19 [...] Telephone Encounter - Xiomy Gerard OSA - 11/13/2023 12:30 PM EST Called pt. Mailbox still full. * Telephone Encounter - Xiomy Gerard [...] patient * Telephone Encounter - Josefina Us PHARM Tech - 11/05/2023 2:42 PM ESTPending Prescriptions: Disp Refills Omeprazole 20 MG Oral Capsule Delayed Rele*30 Cap*0 Sig: take 1 capsule by mouth once daily * Telephone Encounter - Josefina Us PHARM Tech - 11/05/2023 2:41 PM EST Received message from [facility] regarding patient needing appointment. Placed call to patient to advise. Unable to reach pt, as there was no answer and no VM available to leave message. Letter created and sent to patient. Thank you, Josefina Us [facility] Telephone Operator Chief II [facility] ([facility]) (formerly Telepharmacy) 11/05/2023,2:41 PM * Telephone Encounter - Darleen Manzo [facility] - 11/05/2023 8:41 AM ESTPending Prescriptions: Disp Refills Omeprazole 20 MG Oral Capsule Delayed Rele*30 Cap*0 Sig: take 1 capsule by mouth once daily * Telephone Encounter - Darleen Manzo [facility] - 11/05/2023 8:41 AM EST 3rd Attempt Please contact patient so that an appointment can be scheduled with his PRIMARY CARE provider before this refill can be authorized. After contacting patient, please forward request to Carlota Jeffers DO. Last Visit: 10/28/2021 (in office), Visit date not found (telemedicine) Next Visit: Visit date not found Darleen Yun PharmD Clinical Pharmacist [facility] ([facility] - Formerly [facility]) [phone] 11/05/2023 8:41 AM documented in this encounter Plan of Treatment Health Maintenance Due Date Last Done Comments Depression Screening 2007 HIV Screening 2010 Hepatitis C Screening 2013 DTaP,Tdap,and Td Vaccines (7 - Td or Tdap) 01/18/2018 01/19/2008, 12/30/2000, 12/12/1996, Additional history exists COVID-19 Vaccine (2 - season) 2023 10/15/2021 Influenza Vaccine (FLU shot) [...] reflux documented in this encounter Care Teams Environmental Monitoring Specialist Relationship Specialty Start Date End Date Carlota Jeffers DO [address] [facility] [place] [address] PCP - General Family Medicine 10/28/21 documented as of this encounter
--- OUTSIDE RECORDS SUMMARY | 2024-01-31 13:27 | External Medical Summary | Summary of Care ---
Author Name Unknown Organization [facility] Address [address] [place] [address] Phone [phone] Care Team Providers Care Coremaker Pipe Name Role Phone Carlota Jeffers DO Primary Care Provider +1- [phone] Reason for Visit * Reason Comments eRx-Medication Refill Encounter Details Date Type Department Care Team ([facility] st Contact Info) Description 12/28/2023 Refill Family Practice [facility] [address] [place] [address] Nicho Coombs MD [address] [place] [address] [phone] LINDA (generalized anxiety disorder) Allergies Active Allergy [...] Pharmacist [facility] ([facility]) (Formerly [facility]) [phone] 12/29/2023 7:38 AM documented in this encounter [...] disorder documented in this encounter Care Teams Coremaker Pipe Relationship Specialty Start Date End Date Carlota Jeffers DO [address] [facility] [place] [address] PCP - General Family Medicine 10/28/21 documented as of this encounter
--- OUTSIDE RECORDS SUMMARY | 2024-01-31 13:27 | External Medical Summary | Summary of Care ---
Author Name Unknown Organization [facility] Address [address] [place] [address] Phone [phone] Care Team Providers Care Student Nurse Name Role Phone Carlota Jeffers DO Primary Care Provider +1- [phone] Reason for Visit * Reason Comments eRx-Medication Refill Encounter Details Date Type Department Care Team (Late st Contact Info) Description 11/04/2023 Refill Family Practice [facility] [place] [address] [facility] [place] [address] Carlota Jeffers DO [address] [facility] [place] [address] Gastroesophageal reflux disease without esophagitis Allergies Active [...] encounter Miscellaneous Notes * Telephone Encounter - Michelle Schmitz OSA [...] patient * Telephone Encounter - Josefina Us needle punch operator - 11/05/2023 2:42 PM ESTPending Prescriptions: Disp Refills Omeprazole 20 MG Oral Capsule Delayed Rele*30 Cap*0 Sig: take 1 capsule by mouth once daily * Telephone Encounter - Josefina Us needle punch operator - 11/05/2023 2:41 PM EST Received message from [facility] regarding patient needing appointment. Placed call to patient to advise. Unable to reach pt, as there was no answer and no VM available to leave message. Letter created and sent to patient. Thank you, Josefina Us CPhT Face Burler II [facility] ([facility] (formerly Telepharm[facility]) 11/05/2023,2:41 PM * Telephone Encounter - Darleen Manzo [facility] - 11/05/2023 8:41 AM ESTPending Prescriptions: Disp Refills Omeprazole 20 MG Oral Capsule Delayed Rele*30 Cap*0 Sig: take 1 capsule by mouth once daily * Telephone Encounter - Darleen Manzo [facility] - 11/05/2023 8:41 AM EST 3rd Attempt [...] Clinical Pharmacy Services ([facility] - Formerly Telepharmacy) [phone] 11/05/2023 8:41 AM documented in this encounter Plan of Treatment Health Maintenance Due Date Last Done Comments Depression Screening 2007 HIV Screening 2010 Hepatitis C Screening 2013 DTaP,Tdap,and Td Vaccines (7 - Td or Tdap) 01/18/2018 01/19/2008, 12/30/2000, 12/12/1996, Additional history exists COVID-19 Vaccine (2 - 2022-24 season) 2023 10/15/2021 Influenza Vaccine (FLU shot) [...] reflux documented in this encounter Care Teams Student Nurse Relationship Specialty Start Date End Date Carlota Jeffers DO [address] [facility] [place] [address] PCP - General Family Medicine 10/28/21 documented as of this encounter
[2024-01-31] MEDS: ONDANSETRON INJ 2 MG/ML 2 ML VIAL IV STA (14:14)
[2024-01-31] MEDS: SODIUM CHLORIDE 0.9% 1,000 ML IV SCH (14:14)
[2024-01-31 14:17] LABS: Basophils # (auto) 0.06 K/uL (0.00-0.20); Basophils % (auto) 0.6 %; Eosinophils # (auto) 0.16 K/uL (0.00-0.50); Eosinophils % (auto) 1.5 %; Hematocrit (blood only) 45.7 % (42.0-52.0); Hemoglobin 16.2 g/dl (14.0-18.0); Immature Granulocytes # (auto) 0.05 K/uL (0.01-0.20); Immature Granulocytes % (auto) 0.5 %; Lymphocytes # (auto) 2.09 K/uL (1.20-3.40); Lymphocytes % (auto) 19.3 %; Mean Corpuscular Hemoglobin 29.1 pg (25.0-34.0); Mean Corpuscular Hgb Conc 35.4 g/dL (32.0-36.0); Mean Corpuscular Volume 82.2 fL (80.0-100.0); Mean Platelet Volume 9.7 fL (9.4-12.4); Monocytes # (auto) 0.94 K/uL (0.11-0.59); Monocytes % (auto) 8.7 %; Neutrophils # (auto) 7.51 K/uL (1.40-6.50); Neutrophils % (auto) 69.4 %; Platelet Count 208 K/uL (130-400); RDW Coefficient of Variation 11.9 % (11.5-14.5); RDW Standard Deviation 35.1 fL (36.4-46.3); Red Blood Count 5.56 M/uL (4.70-6.10); White Blood Count 10.81 K/ul (4.8-10.8)
--- NOTE | 2024-01-31 14:26 | Emergency Department Note ---
Impression & Plan Acute appendicitis ED Provider Note CHIEF COMPLAINT: Right lower quadrant abdominal pain x 12 hours HISTORY OF PRESENT ILLNESS: Patient is a healthy 28-year-old male who presents emergency department accompanied by his mother for evaluation of right-sided abdominal pain. Patient reports that his symptoms started sometime overnight. They did wake him from sleep mildly. He was totally fine yesterday without any complaints or symptoms. He states the pain is a dull, aching pain in the right lower quadrant. He states it was mild and tolerable when he first woke up but it has been progressively getting worse as the morning has gone on. Speaking and feel nauseous. He has not vomited. He rates his pain an 8/10. He states it does not radiate. He had a normal bowel movement this morning, there is been no diarrhea. No dysuria or hematuria but he does note some increased urinary frequency. He has not taken anything for his pain. He has never had symptoms like this previously. He states the pain is worse when he is up and walking around and moving. REVIEW OF SYSTEMS: Review of systems as per HPI. All other systems reviewed were negative. 10 systems reviewed. PMH: External medical records are reviewed and summarized as above/below. See Problem List. SOCIAL HISTORY: Patient lives at home. 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 PHYSICAL EXAM: Vital Signs: Reviewed Nurse's notes. CONSTITUTIONAL: Well-appearing 28-year-old male laying on the gurney in no acute distress. EYES: Pupils equal, round, reactive to light and accommodation. EOMs intact without nystagmus. Sclera are anicteric. CARDIOVASCULAR: Regular rate and rhythm. Peripheral pulses easily palpable. RESPIRATORY: Breath sounds equal and clear to auscultation. ABDOMEN: Bowel sounds are present. The abdomen is soft, obese, tender to percussion and palpation in the right lower quadrant with voluntary guarding. No rebound or referred rebound tenderness. There is no pain in the right upper quadrant. INTEGUMENTARY: No lesions or rash, normal skin turgor. LYMPH: No lymphadenopathy. EMERGENCY DEPARTMENT COURSE: The patient was seen and assessed as above. External medical records are reviewed. He presents to the emergency department for evaluation of right lower quadrant abdominal pain. IV lock was initiated, CBC with differential, CMP, lipase and urinalysis were ordered. He was hydrated with normal saline solution and medicated with Zofran for nausea. CT scan of the abdomen and pelvis with IV contrast was ordered. Diagnostics, as interpreted by me: Laboratory studies: Minimally elevated white count at 10,800 with left shift. No electrolyte imbalance, PHILOMENA or transaminitis. Lipase is normal. Urine microscopy without signs of infection. Imaging studies: CT scan of the abdomen pelvis with IV contrast consistent with acute appendicitis, no evidence for perforation or abscess. All laboratory and diagnostic imaging studies discussed with the patient and his mother. Consultation was placed with Dr. Ibarra with general surgery. Dr. Ibarra saw the patient in the emergency department and plan is for for the OR for appendectomy. Patient remained stable and comfortable in the ED pending OR. Differential diagnosis: UTI, pyelonephritis, kidney stone, appendicitis, mesenteric adenitis, hernia, shingles, muscle strain, bowel obstruction, perforation, abscess, mass or malignancy, infectious versus inflammatory colitis/enteritis, among others. Past Med/Surg History Medical History Anxiety GERD (gastroesophageal reflux disease) Surgical History No history of previous surgery Family History Other Diabetes Heart disease Social History Smoking Status: Never smoker Preferred Language: German Feels Safe at Home: Yes Allergies Allergies Allergy/AdvReac Type Severity Reaction Status Date / Time bee venom protein (honey bee) Allergy Unknown HIVES Verified 01/31/24 16:57 Home Meds Home Medications Medication Instructions Recorded Confirmed citalopram 20 mg tablet 20 mg PO HS 10/31/18 01/31/24 omeprazole 20 mg capsule,delayed 20 mg PO HS 10/31/18 01/31/24 release yoriyfk-pxvqxiayguhqk-cedqkupm 250 2 tab PO Q6H PRN Migraine Headache 06/11/19 01/31/24 mg-250 mg-65 mg tablet (Excedrin Migraine) epinephrine 0.3 mg/0.3 mL 0 mg IM ONCE PRN anaphylaxis 01/31/24 01/31/24 injection, auto-injector (EpiPen 2-Henri) Previous Rx's Medication Instructions Recorded diphenhydramine HCl 25 mg tablet 25 mg PO Q6H PRN allergic reaction 06/11/19 #20 tabs Results & Data (ED) Vital Signs Vital Signs - 24 hr 01/31/24 13:35 01/31/24 14:58 01/31/24 16:00 Temperature 36.2 C L Temperature Source Temporal Artery Scan Pulse Rate 86 Pulse Rate [Apical] 72 84 Respiratory Rate 20 18 18 Respiratory Effort / Characteristics Non-Labored Spontaneous Respiratory Depth Normal Blood Pressure 152/75 H Blood Pressure [Left Arm] 153/88 H 158/88 H Blood Pressure Mean 100 Blood Pressure Mean [Left Arm] 109 111 Pulse Oximetry 99 99 97 Oxygen Delivery Method Room Air Room Air Room Air Sepsis Recent Fever Within 48 Hours No Sepsis New/Unexplained Change in Mental Status N/A Sepsis Action Taken by Nursing No Action Required Home Medications Current Medication List: was personally reviewed by me Laboratory Data Attestation: I reviewed the patient's lab results. 01/31/24 14:00 01/31/24 14:00 Lab Results 01/31/24 01/31/24 Range/Units 14:00 14:01 WBC 10.81 H (4.8-10.8) K/ul RBC 5.56 (4.70-6.10) M/uL Hgb 16.2 (14.0-18.0) g/dl Hct 45.7 (42.0-52.0) % MCV 82.2 (80.0-100.0) fL MCH 29.1 (25.0-34.0) pg MCHC 35.4 (32.0-36.0) g/dL RDW Std Deviation 35.1 L (36.4-46.3) fL RDW Coeff of Juliette 11.9 (11.5-14.5) % Plt Count 208 (130-400) K/uL MPV 9.7 (9.4-12.4) fL Immature Gran % (Auto) 0.5 % Neut % (Auto) 69.4 % Lymph % (Auto) 19.3 % [place] % (Auto) 8.7 % Eos % (Auto) 1.5 % Baso % (Auto) 0.6 % Neut # (Auto) 7.51 H (1.40-6.50) K/uL Lymph # (Auto) 2.09 (1.20-3.40) K/uL [place] # (Auto) 0.94 H (0.11-0.59) K/uL Eos # (Auto) 0.16 (0.00-0.50) K/uL Baso # (Auto) 0.06 (0.00-0.20) K/uL Immature Gran # (Auto) 0.05 (0.01-0.20) K/uL Sodium 136 (136-145) mmol/L Potassium 3.9 (3.5-5.1) mmol/L Chloride 103 (98-107) mmol/L Carbon Dioxide 27 (21-32) mmol/L Anion Gap 6 (3-11) BUN 13 (6-23) mg/dl Creatinine 0.86 (0.6-1.4) mg/dl Est Cr Clr Drug Dosing 148.5 ml/min Est GFR ( Amer) 136.8 ml/min Est GFR (Non-Af Amer) 118.0 ml/min BUN/Creatinine Ratio 15.1 (10-20) Glucose 89 (70-99(Fasting)) mg/dl Calcium 9.7 (8.6-10.3) mg/dl Total Bilirubin 0.6 (0.2-1.0) mg/dl AST 32 (13-39) U/L ALT 79 H (7-52) U/L Alkaline Phosphatase 50 (34-104) U/L Total Protein 7.7 (6.0-8.3) gm/dl Albumin 4.6 (3.4-5.0) gm/dl Globulin 3.1 (2.5-4.0) gm/dl Albumin/Globulin Ratio 1.5 (0.9-2) Lipase 25 (11-82) U/L Urine Color Yellow Urine Appearance Clear (Clear) Urine pH 6.0 (4.5-7.5) Ur Specific [place] 1.008 (1.000-1.030) Urine Protein Negative (Negative) Urine Glucose (UA) Negative (Negative) Urine Ketones Negative (Negative) Urine Blood Negative (Negative) Urine Nitrite Negative (Negative) Urine Bilirubin Negative (Negative) Urine Urobilinogen Negative (Negative) Ur Leukocyte Esterase 1+ H (Negative) Urine WBC (Auto) 1-5 (0-5) /hpf Urine RBC (Auto) 0-4 (0-4) /hpf U Hyaline Cast (Auto) 0 (0-5) /lpf U Epithel Cells (Auto) 0-5 (0-5) /lpf Urine Bacteria (Auto) Negative (Negative) Administered Medications Discontinued Medications Sodium Chloride (Nss) 1,000 mls @ 999 mls/hr IV .Q1H1M YONAS Stop: 01/31/24 14:53 Last Infusion: 01/31/24 15:12 Dose: Infused Documented By: Admin: 01/31/24 14:14 Dose: 999 mls/hr Documented By: DINORA Ioversol (Optiray 320 100ml) 93 ml IV ONCE ONE Stop: 01/31/24 15:13 Last Admin: 01/31/24 15:13 Dose: 93 ml Documented By: DEYA Ondansetron HCl (Ondansetron Inj 2 Mg/Ml 2 Ml Vial) 4 mg IV NOW STA Stop: 01/31/24 13:54 Last Admin: 01/31/24 14:14 Dose: 4 mg Documented By: DINORA Imaging Data Attestation: I personally reviewed and interpreted this imaging study as follows: Radiologist's Impression: Abdomen/Pelvis CT 01/31/24 13:53 CT abd pelvis IV con only CLINICAL HISTORY: RLQ ABD PAIN TECHNIQUE: Helical axial images of the abdomen and pelvis were obtained and displayed. Automated dose lowering techniques and/or adjustment according to patient size were utilized for this exam. This exam was performed with intravenous contrast. CT DOSE: 1563.46 mGy.cm COMPARISON: None available at the time of this dictation. FINDINGS: Lower chest: Minimal atelectasis is seen. Liver: Likely hepatic steatosis is noted. Gallbladder and biliary tree: No calcified gallstones. Normal caliber wall. No intra- or extrahepatic biliary ductal dilation. Pancreas: Unremarkable, no focal lesions. Spleen: Unremarkable. Adrenals: Unremarkable. Kidneys and ureters: Unremarkable. Bladder: Unremarkable. Reproductive organs: Unremarkable. Bowel: A hiatal hernia is seen. The appendix is mildly thickened measuring up to 9 mm in diameter. Mild periappendiceal stranding is seen. No evidence of perforation. Lymph nodes Retroperitoneal: Unremarkable. Pelvic: Unremarkable. Mesenteric: Subcentimeter lymph nodes are noted. Peritoneum: Minimal fat stranding about the appendix without evidence of fluid collection or pneumoperitoneum. Vessels: Unremarkable. Abdominal wall: Unremarkable. Bones: Degenerative changes in the visualized spine. IMPRESSION: 1. Findings are compatible with acute diverticulitis without evidence of perforation or abscess. 2. Likely hepatic steatosis. ACT 112: Negative or not required by law. Electronically signed by: Иван Chiang M.D. 01/31/2024 3:25 PM Discharge Plan Visit Data Chief Complaint: Abdominal Pain Stated Complaint: R SIDE ABDOMINAL PAIN ED Provider: Paulino Patel ED Midlevel Provider: Ryland Peres Discharge Problem: Acute appendicitis Patient Disposition: Being Evaluated by Surgeon Discharge Instructions Interventions: ED Discharge Assessment Last Done: 01/31/24 17:23 Forms Stand Alone Forms: My [facility] M/A-COM Prescriptions Prescriptions: No Action citalopram 20 mg tablet 20 mg PO HS omeprazole 20 mg capsule,delayed release(DR/EC) 20 mg PO HS Excedrin Migraine 250-250-65 mg Tablet 2 tab PO Q6H PRN (Reason: Migraine Headache) diphenhydramine HCl 25 mg tablet 25 mg PO Q6H PRN (Reason: allergic reaction) Qty: 20 0RF Rx Instructions: until resolution of severe allergic reaction epinephrine [EpiPen 2-Henri] 0.3 mg/0.3 mL auto-injector 0 mg IM ONCE PRN (Reason: anaphylaxis) Rx Instructions: May repeat every 15 minutes until response. Per patient, this is and he no longer has one but needs one and wants me to leave it on the list. Referrals Referrals: Charles Dia DO [Primary Care Provider] - Discharge Problem: Acute appendicitis Qualifiers: Acute appendicitis type: with localized peritonitis Appendicitis gangrene presence: without gangrene Appendicitis perforation presence: without perforation Appendicitis abscess presence: without abscess Qualified Code(s): K 35.30 - Acute appendicitis with localized peritonitis, without perforation or gangrene
[2024-01-31 14:35] LABS: Appearance Urine Clear (Clear); Bacteria Urine Automated Negative (Negative); Bilirubin Urine Negative (Negative); Blood Urine Negative (Negative); Cast Urine Automated 0 /lpf (0-5); Color Urine Yellow; Epithelial Cell Urine Auto 0-5 /lpf (0-5); Glucose Urine UA Negative (Negative); Ketones Urine Negative (Negative); Leukocyte Esterase Urine 1+ (Negative); Nitrite Urine Negative (Negative); Protein Urine Negative (Negative); RBC Urine Automated 0-4 /hpf (0-4); Specific Gravity Urine 1.008 (1.000-1.030); Urobilinogen Urine Negative (Negative)
[2024-01-31 14:41] LABS: Albumin Globulin Ratio 1.5 (0.9-2); Albumin Level 4.6 gm/dl (3.4-5.0); BUN Creatinine Ratio 15.1 (10-20); Bilirubin,Total 0.6 mg/dl (0.2-1.0); Calcium 9.7 mg/dl (8.6-10.3); Creatinine Clr Calc Pharmacy 148.5 ml/min; Est GFR (African American) 136.8 ml/min; Globulin 3.1 gm/dl (2.5-4.0); Potassium 3.9 mmol/L (3.5-5.1); Total Protein 7.7 gm/dl (6.0-8.3)
[2024-01-31] MEDS: OPTIRAY 320 100ml IV ONE (15:13)
--- NOTE | 2024-01-31 15:27 | CT Scan Report ---
CT abd pelvis IV con only CLINICAL HISTORY: RLQ ABD PAIN TECHNIQUE: Helical axial images of the abdomen and pelvis were obtained and displayed. Automated dose lowering techniques and/or adjustment according to patient size were utilized for this exam. This e xam was performed with intravenous contrast. CT DOSE: 1563.46 mGy.cm COMPARISON: None available at the time of this dictation. FINDINGS: Lower chest: Minimal atelectasis is seen. Liver: Likely hepatic steatosis is noted. Gallbladder and biliary tree: No calcified gallstones. Normal caliber wall. No intra- or extrahepatic biliary ductal dilation. Pancreas: Unremarkable, no focal lesions. Spleen: Unremarkable. Adrenals: Unremarkable. Kidneys and ureters: Unremarkable. Bladder: Unremarkable. Reproductive organs: Unremarkable. Bowel: A hiatal hernia is seen. The appendix is mildly thickened measuring up to 9 mm in diameter. Mi ld periappendiceal stranding is seen. No evidence of perforation. Lymph nodes Retroperitoneal: Unremarkable. Pelvic: Unremarkable. Mesenteric: Subcentimeter lymph nodes are noted. Peritoneum: Minimal fat stranding about the appendix without evidence of fluid collection or pneumope ritoneum. Vessels: Unremarkable. Abdominal wall: Unremarkable. Bones: Degenerative changes in the visualized spine. IMPRESSION: 1. Findings are compatible with acute diverticulitis without evidence of perforation or abscess. 2. Likely hepatic steatosis. ACT 112: Negative or not required by law. Electronically signed by: Иван Chiang M.D. 01/31/2024 3:25 PM
[2024-01-31] MEDS ORDERED: fentaNYL citrate PF 100 MCG/2 ML VIAL IV PRN ×2 (16:48→17:26)
[2024-01-31] MEDS ORDERED: ePHEDrine sulfate 50 MG/ML AMP IV PRN ×2 (16:48→17:26)
[2024-01-31] MEDS ORDERED: ONDANSETRON INJ 2 MG/ML 2 ML VIAL IV PRN ×3 (16:48→20:17)
[2024-01-31] MEDS ORDERED: ATROPINE SULFATE 0.1 MG/ML 10ML SYR IV PRN ×2 (16:48→17:26)
--- NOTE | 2024-01-31 16:53 | History & Physical Report ---
Date of Service January 31, 2024 Assessment & Plan (1) Acute appendicitis: Plan: 28-year-old gentleman with acute appendicitis. I had a discussion with him concerning appendicitis. We discussed the risks and benefits of a laparoscopic appendectomy, possible open. We discussed the postoperative course and recovery. We discovered restrictions following the surgery. All his questions were answered, he is agreeable to proceed. Consent has been obtained. We will take him to the operating room at the earliest convenience. History of Present Illness Primary Care Provider: Charles Dia DO 28-year-old gentleman presents with a few day history of vague abdominal complaints. Last night this culminated in severe right-sided abdominal pain which is continued to worsen throughout the night and morning today. He does have nausea but no vomiting. He did have chills. Denies diarrhea. Last ate this morning. Denies shortness of breath or chest pain. Allergies Allergy/AdvReac Type Severity Reaction Status Date / Time bee venom protein (honey bee) Allergy Unknown HIVES Verified 10/31/18 17:33 Home Medications Medication Instructions Recorded Confirmed Type citalopram 20 mg tablet 20 mg PO HS 10/31/18 06/11/19 History omeprazole 20 mg capsule,delayed 20 mg PO HS 10/31/18 06/11/19 History release duvmmei-lpmzfemobgcbn-acvlxnhb 250 2 tab PO Q6H PRN Migraine Headache 06/11/19 06/11/19 History mg-250 mg-65 mg tablet (Excedrin Migraine) diphenhydramine HCl 25 mg tablet 25 mg PO Q6H PRN allergic reaction 06/11/19 Rx #20 tabs epinephrine 0.3 mg/0.3 mL 0.3 mg (0.3 mL) IM ONCE PRN 06/11/19 Rx injection, auto-injector (EpiPen anaphylaxis #2 ea 2-Henri) ranitidine HCl 150 mg tablet 150 mg PO BID PRN itching #14 tabs 06/11/19 Rx (Zantac) Past Med/Surg History Medical History Anxiety GERD (gastroesophageal reflux disease) Surgical History No history of previous surgery Family History Other Diabetes Heart disease Social History Smoking Status: Never smoker Preferred Language: [place] Islander Feels Safe at Home: Yes Review of Systems Review of Systems: All systems reviewed & are unremarkable except as noted in HPI & below Physical Exam Constitutional: WD/WN, vitals as above Eyes: PERRL, conjunctivae normal, anicteric sclerae ENMT: external ear and nose normal, oropharynx normal Neck: trachea midline, no thyromegaly Respiratory: normal respiratory effort; no respiratory distress and no labored breathing Cardiovascular: Rate/Rhythm: regular rate and regular rhythm Gastrointestinal (Abdomen): Inspection/Auscultation: abdomen normal to inspection; abdomen not distended Percussion/Palpation: + abdomen tender ( Bilateral lower quadrant) and abdomen soft; no guarding and abdomen not rigid positive Rovsing sign Skin: no rashes, warm and dry Psychiatric: A+Ox3, euthymic affect Results & Data Results & Data Vital Signs (Past 12 Hours) Vital Signs Temp Pulse Pulse Resp BP BP Pulse Ox 01/31/24 16:00 84 18 158/88 H 97 01/31/24 14:58 72 18 153/88 H 99 01/31/24 13:35 36.2 C L 86 20 152/75 H 99 O2 Del Method 01/31/24 16:00 Room Air 01/31/24 14:58 Room Air 01/31/24 13:35 Room Air Laboratory Results 01/31/24 01/31/24 Range/Units 14:01 14:00 WBC 10.81 H (4.8-10.8) K/ul RBC 5.56 (4.70-6.10) M/uL Hgb 16.2 (14.0-18.0) g/dl Hct 45.7 (42.0-52.0) % MCV 82.2 (80.0-100.0) fL MCH 29.1 (25.0-34.0) pg MCHC 35.4 (32.0-36.0) g/dL RDW Std Deviation 35.1 L (36.4-46.3) fL RDW Coeff of Juliette 11.9 (11.5-14.5) % Plt Count 208 (130-400) K/uL MPV 9.7 (9.4-12.4) fL Immature Gran % (Auto) 0.5 % Neut % (Auto) 69.4 % Lymph % (Auto) 19.3 % [place] % (Auto) 8.7 % Eos % (Auto) 1.5 % Baso % (Auto) 0.6 % Neut # (Auto) 7.51 H (1.40-6.50) K/uL Lymph # (Auto) 2.09 (1.20-3.40) K/uL [place] # (Auto) 0.94 H (0.11-0.59) K/uL Eos # (Auto) 0.16 (0.00-0.50) K/uL Baso # (Auto) 0.06 (0.00-0.20) K/uL Immature Gran # (Auto) 0.05 (0.01-0.20) K/uL Sodium 136 (136-145) mmol/L Potassium 3.9 (3.5-5.1) mmol/L Chloride 103 (98-107) mmol/L Carbon Dioxide 27 (21-32) mmol/L Anion Gap 6 (3-11) BUN 13 (6-23) mg/dl Creatinine 0.86 (0.6-1.4) mg/dl Est Cr Clr Drug Dosing 148.5 ml/min Est GFR ( Amer) 136.8 ml/min Est GFR (Non-Af Amer) 118.0 ml/min BUN/Creatinine Ratio 15.1 (10-20) Glucose 89 (70-99(Fasting)) mg/dl Calcium 9.7 (8.6-10.3) mg/dl Total Bilirubin 0.6 (0.2-1.0) mg/dl AST 32 (13-39) U/L ALT 79 H (7-52) U/L Alkaline Phosphatase 50 (34-104) U/L Total Protein 7.7 (6.0-8.3) gm/dl Albumin 4.6 (3.4-5.0) gm/dl Globulin 3.1 (2.5-4.0) gm/dl Albumin/Globulin Ratio 1.5 (0.9-2) Lipase 25 (11-82) U/L Urine Color Yellow Urine Appearance Clear (Clear) Urine pH 6.0 (4.5-7.5) Ur Specific [place] 1.008 (1.000-1.030) Urine Protein Negative (Negative) Urine Glucose (UA) Negative (Negative) Urine Ketones Negative (Negative) Urine Blood Negative (Negative) Urine Nitrite Negative (Negative) Urine Bilirubin Negative (Negative) Urine Urobilinogen Negative (Negative) Ur Leukocyte Esterase 1+ H (Negative) Urine WBC (Auto) 1-5 (0-5) /hpf Urine RBC (Auto) 0-4 (0-4) /hpf U Hyaline Cast (Auto) 0 (0-5) /lpf U Epithel Cells (Auto) 0-5 (0-5) /lpf Urine Bacteria (Auto) Negative (Negative) Diagnostic Findings ADDENDUM 1. Findings are compatible with acute appendicitis without evidence of perforation or abscess. 2. Likely hepatic steatosis. Electronically signed by: Иван Chiang M.D. 01/31/2024 3:[address] abd pelvis IV con only CLINICAL HISTORY: RLQ ABD PAIN TECHNIQUE: Helical axial images of the abdomen and pelvis were obtained and displayed. Automated dose lowering techniques and/or adjustment according to patient size were utilized for this exam. This exam was performed with intravenous contrast. CT DOSE: 1563.46 mGy.cm COMPARISON: None available at the time of this dictation. FINDINGS: Lower chest: Minimal atelectasis is seen. Liver: Likely hepatic steatosis is noted. Gallbladder and biliary tree: No calcified gallstones. Normal caliber wall. No intra- or extrahepatic biliary ductal dilation. Pancreas: Unremarkable, no focal lesions. Spleen: Unremarkable. Adrenals: Unremarkable. Kidneys and ureters: Unremarkable. Bladder: Unremarkable. Reproductive organs: Unremarkable. Bowel: A hiatal hernia is seen. The appendix is mildly thickened measuring up to 9 mm in diameter. Mild periappendiceal stranding is seen. No evidence of pe rforation. Lymph nodes Retroperitoneal: Unremarkable. Pelvic: Unremarkable. Mesenteric: Subcentimeter lymph nodes are noted. Peritoneum: Minimal fat stranding about the appendix without evidence of fluid collection or pneumoperitoneum. Vessels: Unremarkable. Abdominal wall: Unremarkable. Bones: Degenerative changes in the visualized spine. IMPRESSION: 1. Findings are compatible with acute diverticulitis without evidence of perforation or abscess. 2. Likely hepatic steatosis. ACT 112: Negative or not required by law. Electronically signed by: Иван Chiang M.D. 01/31/2024 3:25 PM (1) Acute appendicitis Acute appendicitis type: with localized peritonitis Appendicitis abscess presence: without abscess Appendicitis gangrene presence: without gangrene Appendicitis perforation presence: without perforation Qualified Code(s): K35.30 - Acute appendicitis with localized peritonitis, without perforation or gangrene
--- NOTE | 2024-01-31 16:55 | Anesthesiology Consultation ---
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 History Height/Weight Height: 5 ft 8 in Weight: 102.6 kg Allergies Allergy/AdvReac Type Severity Reaction Status Date / Time bee venom protein (honey bee) Allergy Unknown HIVES Verified 10/31/18 17:33 Medications Home Medications Medication Instructions Recorded Confirmed Last Taken citalopram 20 mg tablet 20 mg PO HS 10/31/18 06/11/19 10/30/18 omeprazole 20 mg capsule,delayed 20 mg PO HS 10/31/18 06/11/19 10/31/18 release mfpzmrj-qsrlzbqjhoave-eifoftor 250 2 tab PO Q6H PRN Migraine Headache 06/11/19 06/11/19 06/09/19 mg-250 mg-65 mg tablet (Excedrin Migraine) diphenhydramine HCl 25 mg tablet 25 mg PO Q6H PRN allergic reaction 06/11/19 Unknown #20 tabs epinephrine 0.3 mg/0.3 mL 0.3 mg (0.3 mL) IM ONCE PRN 06/11/19 Unknown injection, auto-injector (EpiPen anaphylaxis #2 ea 2-Henri) ranitidine HCl 150 mg tablet 150 mg PO BID PRN itching #14 tabs 06/11/19 Unknown (Zantac) Past Medical History Medical History Anxiety GERD (gastroesophageal reflux disease) Past Family History Family History Other Diabetes Heart disease Past Surgical History Surgical History No history of previous surgery Social History Smoking Status: Never smoker Physical Exam Vital Signs Last Vital Signs Temp 97.2 F L 01/31/24 13:35 Pulse 84 01/31/24 16:00 Resp 18 01/31/24 16:00 BP 158/88 H 01/31/24 16:00 Pulse Ox 97 01/31/24 16:00 O2 Del Method Room Air 01/31/24 16:00 Testing Laboratory Results 01/31/24 14:00 01/31/24 14:00 Urine Color Yellow 01/31/24 14:01 Urine Appearance Clear (Clear) 01/31/24 14:01 Urine pH 6.0 (4.5-7.5) 01/31/24 14:01 Ur Specific [place] 1.008 (1.000-1.030) 01/31/24 14:01 Urine Protein Negative (Negative) 01/31/24 14:01 Urine Glucose (UA) Negative (Negative) 01/31/24 14:01 Urine Ketones Negative (Negative) 01/31/24 14:01 Urine Nitrite Negative (Negative) 01/31/24 14:01 Ur Leukocyte Esterase 1+ (Negative) H 01/31/24 14:01 Urine WBC (Auto) 1-5 /hpf (0-5) 01/31/24 14:01 Urine RBC (Auto) 0-4 /hpf (0-4) 01/31/24 14:01 U Hyaline Cast (Auto) 0 /lpf (0-5) 01/31/24 14:01 U Epithel Cells (Auto) 0-5 /lpf (0-5) 01/31/24 14:01 Urine Bacteria (Auto) Negative (Negative) 01/31/24 14:01
[2024-01-31] MEDS ORDERED: ACETAMINOPHEN 1000 MG/100 ML IV IV ONE (17:10)
[2024-01-31] MEDS ORDERED: DexMEDEtomidine HCL IV 100 MCG/ML VIAL IV ONE (17:11)
[2024-01-31] MEDS ORDERED: PROPOFOL IV EMULSION 10 MG/ML 20 ML VIAL IV ONE (17:21)
[2024-01-31] MEDS ORDERED: KETOROLAC 30 MG/ML VIAL ONE (17:21)
[2024-01-31] MEDS ORDERED: LIDOCAINE 2% 2 ML VIAL/AMP(20MG/ML) INFIL ONE (17:21)
[2024-01-31] MEDS ORDERED: DEXAMETHASONE SOD INJ 4 MG/ML VIAL ONE (17:21)
[2024-01-31] MEDS ORDERED: ROCURONIUM BROMIDE 10 MG/ML 5 ML VIAL IV ONE (17:21)
[2024-01-31] MEDS ORDERED: fentaNYL citrate PF 100 MCG/2 ML VIAL ONE (17:21)
[2024-01-31] MEDS ORDERED: ONDANSETRON INJ 2 MG/ML 2 ML VIAL ONE (17:21)
[2024-01-31] MEDS ORDERED: MIDAZOLAM HCL 1 MG/ML 2ML VIAL ONE (17:21)
[2024-01-31] MEDS: ceFAZolin 2000MG 2,000 MG/15 ML SYR IV ONE (17:51)
[2024-01-31] MEDS ORDERED: SUGAMMADEX SODIUM 200 MG/2 ML VIAL IV ONE (18:04)
[2024-01-31] MEDS: BUPIVACAINE/EPINEPHRINE 0.5% MPF 1:200,000 30 ML VIAL ONE (18:15)
--- NOTE | 2024-01-31 18:28 | Post Operative Brief Note ---
Immediate Post Op Note v1 Date of Surgery January 31, 2024 Pre & Post Diagnosis Operation Date: 01/31/24 17:30 Preop diagnosis: Acute appendicitis Postop diagnosis: Same I identified the patient and participated in the time-out.: Yes Procedure Operation Date: 01/31/24 17:30 laparoscopic appendectomy Surgeon Shaan Ibarra MD Facsimile Operator none Estimated Blood Loss 5 Findings Consistent with Post-Op Diagnosis
--- NOTE | 2024-01-31 18:30 | Operative Report ---
Post Operative Report Pre & Post Diagnosis Operation Date: 01/31/24 17:30 preop diagnosis: Acute appendicitis Postop diagnosis: Same I identified the patient and participated in the time-out.: Yes Procedure Operation Date: 01/31/24 17:30 laparoscopic appendectomy Surgeon Shaan Ibarra MD Manager Training And Development none Estimated Blood Loss 5 Findings Consistent with Post-Op Diagnosis acute appendicitis, nonperforated Specimens appendix Drains none Anesthesia Type General Complications no immediate complications Description of Procedure the patient was taken to the operating room, and placed supine on the operating table. A timeout was performed, perioperative antibiotics were administered, SCD boots were placed. After adequate anesthesia and analgesia was obtained, the abdomen was prepped and draped in the normal sterile fashion. A 1 cm incision was made in the supraumbilical region and carried down to the level of the fascia. A trach hook was used to grasp the fascia and elevated and a varies needle was used to enter the abdominal cavity. The abdomen was insufflated to a pressure of 15 mmHg, and a 5 mm trocar was placed in this location. A 5 mm 30 degree laparoscope was placed into the abdominal cavity, and the abdomen was surveyed. The patient was placed in Trendelenburg and slightly to the left. One 5 mm trocar was placed in the right upper quadrant, and one 12 mm trocar was placed in the left lower quadrant under direct visualization. The right colon was identified and traced down to the cecum. The appendix was identified and elevated anteriorly and medially. A window was created at the base of the appendix with a [place] dissector. The Endo STAN stapler was used to transect the appendix at its base through noninflamed tissue, and subsequently the mesoappendix. The appendix was placed in an Endo Catch bag, and removed via the left lower quadrant port site. Attention was turned to hemostasis, which was excellent. The abdomen was copiously irrigated and suctioned free, and again hemostasis was found to be excellent. All trochars removed under direct visualization. The abdomen was desufflated. The fascia in the 12 mm port site was closed with a 0 Vicryl suture. The skin was closed with a running 4-0 Monocryl subcuticular stitch. Dermabond was applied. The patient tolerated the procedure without complication, and was transferred in stable condition to the PACU. All instrument, needle, and sponge counts were correct at the end of the case. I attest to the content of the Intraoperative Record and any orders documented therein. Any exceptions are noted below.
--- NOTE | 2024-01-31 18:39 | Anesthesiology Progress Note ---
Date of Service January 31, 2024 Anesthesia Post Procedure Vital Signs Vital Signs: Temp Pulse Pulse Resp BP BP Pulse Ox 01/31/24 16:00 84 18 158/88 H 97 01/31/24 14:58 72 18 153/88 H 99 01/31/24 13:35 36.2 C L 86 20 152/75 H 99 O2 Del Method 01/31/24 16:00 Room Air 01/31/24 14:58 Room Air 01/31/24 13:35 Room Air Transfer of Care Handoff Completed per policy Notes Mental Status: alert / awake / arousable Patient Amnestic to Procedure: Yes Nausea / Vomiting: adequately controlled Pain: adequately controlled Airway Patency, RR, SpO2: stable & adequate BP & HR: stable & adequate Hydration State: stable & adequate Anesthetic Complications: no major complications apparent and Pt Satisfied with anesthetic care
[2024-01-31] MEDS ORDERED: MoRPHine SULFATE 2 MG/ML CARP IV PRN (20:17)
[2024-01-31] MEDS ORDERED: diphenhydrAMINE Capsule 25 MG CAP PO PRN (20:17)
[2024-01-31] MEDS ORDERED: KETOROLAC 30 MG/ML VIAL IV PRN (20:17)
[2024-01-31] MEDS ORDERED: PROMETHAZINE HCL 12.5 MG in SODIUM CHLORIDE 0.9% 50 ML IV PRN (20:17)
[2024-01-31] MEDS ORDERED: oxyCODONE/ACETAMINOPHEN 5mg/325mg TAB PO PRN (20:17)
[2024-01-31] MEDS: MoRPHine SULFATE 4 MG/ML 1 ML CARP\\VIAL IV PRN (20:35)
[2024-01-31] MEDS: oxyCODONE/ACETAMINOPHEN 5mg/325mg TAB PO PRN (23:48)
[2024-02-01] MEDS: ENOXAPARIN INJ 40 MG/0.4 ML SYR SQ SCH (09:40)
--- NOTE | 2024-02-01 10:29 | Surgery Progress Note ---
Date of Service February 01, 2024 Assessment & Plan (1) Acute appendicitis: Plan: POD #1 s/p laparoscopic appendectomy Doing well Advance diet as tolerated Pain control DC to home later this afternoon Follow-up in clinic in 2 weeks Admission and Anticipated Discharge Date Admission Date: January 31, 2024 Subjective doing well. Some pain at the incisions. No nausea or vomiting. No fevers or chills Physical Exam Physical Exam: NAD, A&O x 3 AFVSS Abdomen: Soft, nontender nondistended Incisions C/D/I; Dermabond intact Results & Data Vital Signs (Past 12 Hours) Vital Signs Temp Pulse Resp BP Pulse Ox O2 Del Method 02/01/24 07:41 36.9 C 99 H 18 112/62 94 Room Air 02/01/24 04:00 36.8 C 96 H 18 142/74 H 93 Room Air 02/01/24 00:00 36.8 C 94 H 18 138/69 95 Room Air 01/31/24 23:00 Room Air 01/31/24 22:47 36.9 C 94 H 18 146/70 H 98 Room Air (1) Acute appendicitis Acute appendicitis type: with localized peritonitis Appendicitis abscess presence: without abscess Appendicitis gangrene presence: without gangrene Appendicitis perforation presence: without perforation Qualified Code(s): K35.30 - Acute appendicitis with localized peritonitis, without perforation or gangrene
--- NOTE | 2024-02-02 11:06 | Discharge Summary ---
Date of Service February 02, 2024 Admission HPI Per Admitting Provider 28-year-old gentleman presents with a few day history of vague abdominal complaints. Last night this culminated in severe right-sided abdominal pain which is continued to worsen throughout the night and morning today. He does have nausea but no vomiting. He did have chills. Denies diarrhea. Last ate this morning. Denies shortness of breath or chest pain. Principal Diagnosis acute appendicitis Discharge Data Allergies Allergy/AdvReac Type Severity Reaction Status Date / Time bee venom protein (honey bee) Allergy Unknown HIVES Verified 01/31/24 16:57 Procedures Performed Operation Date: 01/31/24 17:30 Actual Procedures p Laparoscopic Appendectomy(Not Applicable) - Shaan Ibarra MD Ordered Studies 01/31/24 13:53 CT abd pelvis IV con only Stat Hospital Course (1) Acute appendicitis: Patient was taken to operating room for laparoscopic appendectomy by Dr. Shaan Ibarra on 01/31/2024. He was found to have acute appendicitis without perforation or abscess. He was transferred to medical/surgical floor for postoperative care. Diet advanced as tolerated and pain management as needed. POD # 1 afebrile, vss, postop pain at incision sites however controlled and tolerating diet. He was discharged home in afternoon on POD # 1 in stable condition. Total Time Total Time Spent Total Time Spent (In Minutes): 20 Discharge Plan Discharge Items Patient Disposition: Home - Self-Care Reason For Visit: APPENDICITIS Discharge Diagnosis: Appendicitis Activity: Per Instructions section Lifting: No more than 10 pounds Sexual Activity: Wait until after follow-up appointment Exercise/Sports: Wait until after follow-up appointment Non-emergency contact: Primary Care Provider and Surgeon Call non-emergency contact if: you have any medication questions, your pain is not controlled, your pain is concerning for you, you have a fever, your temperature is above 101, your wound has increased redness, your wound has increased drainage and your wound pain has increased Follow-up/Referrals: Kasie Mayo PA-C [Physician Senior Interactive Producer] - 02/16/24 12:45 pm (2 weeks [facility] arrive by 1230 ) Charles Dia DO [Primary Care Provider] - Diet: Regular Addtl Attending Provider Instructions: Post-Surgical ~Discharge Instructions Activity Recommendations: - lifting limitation: (20 pounds for 2-3 weeks), - exercise/sex/sports limit: (nonstrenuous for 2 weeks), - driving or machine use limit: (none for 1 week or until pain free and no longer taking narcotic pain medication), - Shower/bathe limit: (may shower beginning tomorrow) Diet: - Resume previous diet SPECIAL CARE INSTRUCTIONS: - May shower. Let water run over area and pat dry. - Leave surgical glue on incisions. Do not pick off - Call the surgeon's office with any questions or concerns - - (ex. temperature higher than 101 degrees F, excessive bleeding or pain). MEDICATIONS: - Resume previous medications unless instructed otherwise by your surgeon. - May alternate extra strength Tylenol and Ibuprofen as needed for mild to moderate pain -650 mg Tylenol every 6 hours as needed - Ibuprofen 600 mg every 6 hours as needed, with food - Percocet 1 every 6 hours, as needed for moderate to severe pain FOLLOW UP VISIT: - If not already scheduled, please call the office to schedule a two week follow-up appointment. Office number Pending Studies at Discharge: Yes (appendix pathology, will be reviewed at posto p visit) Stand-Alone Forms: [facility], Pain - Opioid Pain Management, Smoking Cessation Medications and DC Order Prescriptions: New oxycodone-acetaminophen [Percocet] 5-325 mg tablet 1 tab PO Q6H PRN (Reason: pain) Qty: 10 0RF Continued citalopram 20 mg tablet 20 mg PO HS omeprazole 20 mg capsule,delayed release(DR/EC) 20 mg PO HS Excedrin Migraine 250-250-65 mg Tablet 2 tab PO Q6H PRN (Reason: Migraine Headache) diphenhydramine HCl 25 mg tablet 25 mg PO Q6H PRN (Reason: allergic reaction) Qty: 20 0RF Rx Instructions: until resolution of severe allergic reaction epinephrine [EpiPen 2-Henri] 0.3 mg/0.3 mL auto-injector 0 mg IM ONCE PRN (Reason: anaphylaxis) Rx Instructions: May repeat every 15 minutes until response. Per patient, this is and he no longer has one but needs one and wants me to leave it on the list. Discharge Orders: Discharge Order (Routine); Ordered 02/01/24 Ordered By: Shaan Ibarra Admission Data Admit Date/Time: 01/31/24 18:32 Attending Provider: Shaan Ibarra Admit Provider: Shaan Ibarra Primary Care Provider: Charles Dia Other Interventions: Discharge Summary Assessment (RN) Last Done: 02/01/24 11:43
== END 2024-02-01 14:27 | disposition home or self-care (01) ==
LOC: 3N 13:21 → ED 13:21